=== PATIENT | female | born 2000 | race Caucasian/White ===

== ENCOUNTER 2020-01-22 14:34 | Emergency (ER) | payer MEDICAID, SELFPAY ==
[2020-01-22 14:45] VITALS: BP 130/81; PULSE 78; RESP 18; TEMP 37.2; O2SAT 100; BMI 29.5
--- NOTE | 2020-01-22 14:48 | ED_ITS ---
HPI - General: Chief complaint: Vaginal Bleeding Stated complaint: preg/bleeding 5 weeks Time Seen by Provider: 01/22/20 14:40 Source: patient Mode of arrival: ambulatory Limitations: no limitations History of Present Illness: HPI Narrative: 19-year-old female who believes she is 5 to 6 weeks states that she has had slight bleeding over the last few hours. She denies any blood clots. She states she had positive test 1 week ago but had a negative test at clinic yesterday. Denies any pain. MD Complaint: vaginal bleeding Onset (ago): hour(s) Severity: mild Relieving factors: none Exacerbating factors: none Vaginal bleeding: light Associated symptoms: Deny abdominal pain, dysuria, headache(s), nausea or vomiting Review of Systems Const: Denies: fever, chills, body aches or change in appetite Eyes: Denies: blurry vision or eye discomfort ENMT: Denies: throat pain or dental pain Card: Denies: chest pain Resp: Denies: shortness of breath GI: Denies: abdominal pain, nausea, vomiting or diarrhea : Reports: vaginal bleeding; Denies: painful urination Musc: Denies: neck pain or back pain Skin/Breast: Denies: rash Neuro: Denies: headache Psych: Denies: depression Hans/Lymph: Denies: easy bruising All/Imm: Denies: hives PFSH ED PFSH: Social History Smoking and tobacco status: former smoker Physical Exam Const: COMMON NORMALS: no apparent distress, oriented x3 and healthy appearing HENMT: COMMON NORMALS: normocephalic and head/scalp atraumatic HEAD & SCALP: normocephalic and atraumatic Eye: COMMON NORMALS: PERRL and EOMs intact bilaterally PUPIL: Yes PERRL Neck/C-Spine: COMMON NORMALS: full ROM and supple Chest: COMMONS NORMALS: inspection of chest normal and palpation of chest normal Resp: COMMON NORMALS: normal respiratory effort, no retractions, no use of accessory muscles and clear to auscultation bilaterally AUSCULTATION: clear to auscultation bilaterally Cardio: COMMON NORMALS: regular rate, regular rhythm and no murmurs RATE: regular rate RHYTHM: regular rhythm GI: COMMON NORMALS: normal to inspection, nondistended, normoactive bowel sounds, soft to palpation, non-tender and no masses PALPATION: Yes soft Extremity: COMMON NORMALS: normal to inspection and full ROM Neuro: COMMON NORMALS: oriented x3, moves all extremities and no focal motor deficits Psych: COMMON NORMALS: mental status grossly normal, thought process normal and cooperative THOUGHT PROCESS: normal thought process Skin: COMMON NORMALS: no rashes or lesions noted and no wounds GENERAL SKIN EXAM: no rashes or lesions noted Course Vital Signs: Vital signs: Vital Signs Temperature 99.0 F 01/22/20 14:45 Pulse Rate 78 01/22/20 14:45 Respiratory Rate 18 01/22/20 14:45 Blood Pressure 130/81 01/22/20 14:45 Pulse Oximetry 100 01/22/20 14:45 MDM - OB/Uterine Contractions MDM Narrative: Medical decision making narrative: Patient presents here with vaginal bleeding and likely has a miscarriage as her blood level is only 3. Bedside ultrasound last fall no signs of ectopic and do not believe a formal ultrasound is needed as her quantitative is so low. She is to have a repeat quantitative in 2 to 3 days to make sure level goes to 0. She is return if her bleeding is heavier. Lab Data: Labs: Lab Results 01/22/20 01/22/20 01/22/20 Range/Units 14:45 14:45 14:45 WBC 6.7 (4.5-13.0) 10^3/ uL RBC 4.79 (4.1-5.3) 10^6/u L Hgb 13.1 (11.5-15.3) g/dL Hct 39.8 (37.0-47.0) % MCV 83.1 (81-99) fL MCH 27.3 L (28.0-34.0) pg MCHC 32.9 (30.0-36.0) g/dL RDW 12.9 (12.1-15.1) % Plt Count 253 (130-400) 10^3/c mm MPV 9.4 (7.4-10.4) fL Neut % (Auto) 53.1 % Lymph % (Auto) 35.2 % [place]kinson % (Auto) 9.2 % Eos % (Auto) 1.8 % Baso % (Auto) 0.4 % Neut # (Auto) 3.6 (1.8-8.0) 10^3/u L Lymph # (Auto) 2.4 (1.5-6.5) 10^3/u L [place] # (Auto) 0.6 (0.2-0.9) 10^3/u L Eos # (Auto) 0.1 (0.0-0.8) 10^3/u L Baso # (Auto) 0.0 (0.0-0.1) 10^3/u L Nucleated RBC % (a uto) 0 % Nucleated RBCs # 0.0 /100WBC Ser , Nhan i-Qnt 3.66 mIU/mL Blood Type O Positive Rho(D) Type Positive Discharge Plan Discharge Patient Disposition: Home, Self-Care Clinical Impression: Miscarriage Condition: Stable Discharge Orders: Discharge Order (Routine); Ordered 01/22/20 Ordered By: Jacques Dhillon Referrals: Regi Palmer MD [Primary Care Provider] - 1-3 days Discharge Diet: Advance as tolerated Discharge Activity: Resume usual activity Patient Instructions: Spontaneous Miscarriage (ED) Coding Level of Care Code ED Legal Contracts Specialist for Nakita Fwd Exam Comprehensive
[2020-01-22 14:57] LABS: Basophils % 0.4 %; Eosinophils # 0.1 10^3/uL (0.0-0.8); Eosinophils % 1.8 %; Hematocrit 39.8 % (37.0-47.0); Hemoglobin 13.1 g/dL (11.5-15.3); Lymphocytes # 2.4 10^3/uL (1.5-6.5); Lymphocytes % 35.2 %; Mean Corpuscular HGB Conc 32.9 g/dL (30.0-36.0); Mean Corpuscular Hemoglobin 27.3 pg (28.0-34.0); Mean Corpuscular Volume 83.1 fL (81-99); Mean Platelet Volume 9.4 fL (7.4-10.4); Monocytes # 0.6 10^3/uL (0.2-0.9); Monocytes % 9.2 %; Neutrophils # 3.6 10^3/uL (1.8-8.0); Neutrophils % 53.1 %; Nucleated Red Blood Cells % 0 %; Platelet Count 253 10^3/cmm (130-400); Red Blood Count 4.79 10^6/uL (4.1-5.3); Red Cell Distribution Width 12.9 % (12.1-15.1); White Blood Count 6.7 10^3/uL (4.5-13.0)
[2020-01-22 15:19] LABS: HCG Quantitative 3.66 mIU/mL
[2020-01-22 15:45] VITALS: BP 135/81; PULSE 83; RESP 18; O2SAT 98
== END 2020-01-22 15:47 | disposition home or self-care (01) ==
PROVIDERS: Emergency Provider Emergency Medicine; Family Provider Family Medicine; PCP Family Medicine
DX: O03.9 Complete or unspecified spontaneous abortion without complication (principal); Z87.891 Personal history of nicotine dependence
CPT/HCPCS: 12345; 36415; 84702; 85025; 86900; 99281; 99282

== ENCOUNTER → 2020-02-18 13:31 | Outpatient (BNVA) | payer MEDICAID, SELFPAY | PROVIDERS: Family Provider Family Medicine; PCP Family Medicine; Visit Provider Nurse Practitioner | DX: N92.6 Irregular menstruation, unspecified (principal); Z32.01 Encounter for pregnancy test, result positive | CPT/HCPCS: 81025 ==

== ENCOUNTER → 2020-04-04 13:44 | Outpatient (BNVA) | payer MEDICAID, SELFPAY | PROVIDERS: Family Provider Family Medicine; PCP Family Medicine; Visit Provider Psychiatry & Neurology Psychiatry | DX: F41.1 Generalized anxiety disorder (principal); F33.1 Major depressive disorder, recurrent, moderate | CPT/HCPCS: 99204 ==

== ENCOUNTER → 2020-05-12 08:28 | Outpatient (BNVA) | payer MEDICAID, SELFPAY | PROVIDERS: Family Provider Family Medicine; PCP Family Medicine; Visit Provider Psychiatry & Neurology Psychiatry | DX: F33.1 Major depressive disorder, recurrent, moderate (principal); F41.1 Generalized anxiety disorder | CPT/HCPCS: 99213 ==

== ENCOUNTER 2020-06-12 14:31 | Outpatient (CLI) | payer MEDICAID, SELFPAY ==
[2020-06-12 14:34] VITALS: BMI 30.9
[2020-06-12 14:42] VITALS: BP 107/63; PULSE 80
[2020-06-12 14:57] VITALS: BP 100/65; PULSE 74; RESP 16; TEMP 36.9
[2020-06-12 15:00] VITALS: BP 100/65; PULSE 74; RESP 16; TEMP 36.9
== END 2020-06-12 15:00 | disposition home or self-care (01) ==
PROVIDERS: PCP Family Medicine; Visit Provider Family Medicine
DX: O26.899 Other specified pregnancy related conditions, unspecified trimester (principal); Z3A.00 Weeks of gestation of pregnancy not specified; R10.9 Unspecified abdominal pain
CPT/HCPCS: 99211

== ENCOUNTER 2020-06-12 15:04 | Emergency (ER) | payer MEDICAID, SELFPAY ==
[2020-06-12 13:52] LABS: Basophils % 0.3 %; Eosinophils # 0.1 10^3/uL (0.0-0.8); Eosinophils % 1.2 %; Hematocrit 37.2 % (37.0-47.0); Hemoglobin 12.2 g/dL (11.5-15.3); Lymphocytes # 1.5 10^3/uL (1.5-6.5); Mean Corpuscular HGB Conc 32.8 g/dL (30.0-36.0); Mean Corpuscular Volume 85.3 fL (81-99); Mean Platelet Volume 10.2 fL (7.4-10.4); Monocytes # 0.7 10^3/uL (0.2-0.9); Monocytes % 7.6 %; Neutrophils # 6.52 10^3/uL (1.8-8.0); Neutrophils % 73.2 %; Nucleated Red Blood Cells % 0 %; Platelet Count 244 10^3/cmm (130-400); Red Blood Count 4.36 10^6/uL (4.1-5.3); Red Cell Distribution Width 13.2 % (12.1-15.1); White Blood Count 8.9 10^3/uL (4.5-13.0)
[2020-06-12 14:17] LABS: Alanine Aminotransferase 6 U/L (0-33); Albumin Level 3.6 g/dL (3.5-5.2); Alkaline Phosphatase 57 IU/L (35-105); Anion Gap 10.9 (5-19); Aspartate Amino Transferase 8 U/L (0-32); Blood Urea Nitrogen 7 mg/dL (6-20); Calcium 9.2 mg/dL (8.5-10.5); Carbon Dioxide 24 mmol/L (22-29); Chloride 104 mmol/L (98-107); Globulin 2.8 g/dL (1.3-4.6); Glomerular Filtration Rate 157.3 mL/min (90-130); Glucose 82 mg/dL (65-115); Lipase 32 U/L (13-60); Magnesium 1.8 mg/dL (1.7-2.3); Osmolality Calculated 277 mOsm/kg (285-295); Potassium 3.9 mmol/L (3.5-5.1); Sodium 135 mmol/L (136-145); Total Bilirubin 0.2 mg/dL (0.15-1.2); Total Protein 6.4 g/dL (6.6-8.7)
[2020-06-12 15:33] VITALS: BP 117/57; PULSE 83; RESP 18; TEMP 37.1; O2SAT 100; BMI 30.9
[2020-06-12 15:42] VITALS: BP 117/57; PULSE 73; RESP 18; O2SAT 99
--- NOTE | 2020-06-12 15:52 | US_ITS ---
WS: [id number] RIGHT UPPER QUADRANT ULTRASOUND HISTORY: Abdominal Pain COMPARISON: None available. Liver: 16.3 cm in length. Normal size liver. No bile duct dilatation or mass. Gallbladder: Normally distended gallbladder with no stones or wall thickening. CBD: 0.3 cm Pancreas: Not visualized. Right kidney: 10.1 cm in length. Normal size and echogenicity. No hydronephrosis or mass. Aorta and IVC: Unremarkable abdominal aorta and IVC. RIGHT lower quadrant is imaged. The appendix is not identified. No inflammatory process. US/US abdomen limited [id number] IMPRESSION: 1. Appendix is not identified by ultrasound. 2. No ascites. 3. Negative gallbladder.
--- NOTE | 2020-06-12 15:52 | W.ED.ABDPA2 ---
HPI - Abdominal Pain General: Chief Complaint: Abdominal Pain Stated Complaint: RIGHT SIDE PAIN Time Seen by Provider: 06/12/20 15:46 Source: patient Mode of arrival: ambulatory Limitations: no limitations History of Present Illness: HPI narrative: Patient is a 19-year-old female who is 20 weeks comes in complaining of right upper quadrant abdominal pain. States the pain began last night and was present after eating. Pain is been constant since that time. Is made worse by eating which induces nausea. Denies any lower abdominal pain. She denies any vaginal discharge or bleeding. Patient has any urinary symptoms. Patient denies any fevers or chills. Said no diarrhea or constipation she denies any flank pain. Patient denies have anything similar to this in the past. Patient was already seen on the labor delivery floor and ruled out for active labor. Associated Symptoms: Reports nausea; Denies chills, coffee ground emesis, constipation, GI cramping, diarrhea, dysuria, fever(s), heartburn, hematochezia, hematuria, hematemesis, melena, syncope and vomiting Review of Systems Const: Denies: fever(s), chills, body aches, fatigue, malaise or diaphoresis Eyes: Denies: change in vision, blurry vision, photophobia, eye discomfort, eye discharge, eye redness or yellow eyes ENMT: Denies: throat pain, odynophagia, hoarseness, swelling of lips/tongue, ear or mastoid pain, ear discharge, change in hearing or nasal discharge Card: Denies: chest pain, palpitations, irregular heart rhythm, edema, lightheadedness, syncope, pre-syncope, dyspnea on exertion or orthopnea Resp: Denies: dyspnea, productive cough, non-productive cough, wheezing, hemoptysis or chest congestion GI: Reports: abdominal pain and nausea; Denies: vomiting, hematemesis, coffee ground emesis, heartburn, diarrhea, constipation, GI cramping, hematochezia or melena : Denies: flank pain, dysuria, urinary frequency, urinary urgency or hematuria Musc: Denies: neck pain, back pain, extremity pain, extremity swelling, joint pain, joint swelling, joint redness, joint warmth or joint stiffness Skin/Breast: Denies: rash, pruritus, erythema, skin pain or skin tenderness Neuro: Denies: headache(s), numbness in extremities, weakness in extremities, sensory changes, lack of coordination, difficulty walking, dizziness, vertigo, confusion, Slurred speech present or seizure-like activity Hans/Lymph: Denies: easy bruising, easy bleeding, petechiae, purpura or enlarged lymph nodes All/Imm: Denies: urticaria, throat swelling, tongue swelling, facial swelling or acute wheezing PFSH ED PFSH: Medical History (Updated 06/12/20 @ 19:20 by Shonda Roy) Generalized anxiety disorder Major depressive disorder, recurrent, moderate Surgical History (Updated 06/12/20 @ 16:31 by Shonda Roy) H/O shoulder surgery Social History (Updated 04/04/20 @ 14:05 by Hunter Austin LPN) Smoking and tobacco status: current every day smoker cigarettes Packs smoked per day: 0.25 Years cigarettes smoked: 2 Quit status (tobacco): has tried quititng Number of times tried to quit tobacco: 1 Second hand smoke exposure: No Current gender identity: Female Female Reproductive History: : 3 Physical Exam Const: COMMON NORMALS: no acute distress, patient oriented x3, no limitations and alert GENERAL APPEARANCE: cooperative HENMT: COMMON NORMALS: normocephalic, atraumatic, external ears normal, EAC's normal and Normal external nose present HEAD & SCALP: normal to inspection, normocephalic and atraumatic FACE & SINUS: normal facial exam and face symmetric NOSE: Normal external nose present and Normal nares present EXTERNAL EAR: Yes external ears normal EXTERNAL AUDITORY CANAL: EAC's normal MOUTH: Normal oral and palatal mucosa present, lip normal and tongue normal Eye: COMMON NORMALS: Equal, round and reactive pupils present and conjunctivae normal GENERAL EYE: appearance normal, both eyes and all related structures ALIGNMENT: Yes alignment normal PERIORBITAL: periorbital findings normal EYELID: eyelids normal CONJUNCTIVA: Yes conjunctivae normal SCLERA: sclerae normal PUPIL: Yes Equal, round and reactive pupils present Neck/C-Spine: COMMON NORMALS: full ROM, no lymphadenopathy, supple, no meningeal signs and no JVD GENERAL: Yes normal visual inspection and Yes trachea midline Chest: COMMONS NORMALS: normal inspection of the chest and normal palpation of entire chest wall Resp: COMMON NORMALS: normal respiratory effort, No retractions, No use of accessory muscles and clear to auscultation bilaterally EFFORT & INSPECTION: Yes able to speak in complete sentences and Yes symmetric chest movement AUSCULTATION: clear to auscultation bilaterally, no crackles, no rales, no rhonchi and no wheezes Cardio: COMMON NORMALS: no JVD, regular rate, regular rhythm, S1 normal heart sound present and S2 normal heart sound present RATE: regular rate RHYTHM: regular rhythm HEART SOUNDS: S1 normal heart sound present, S2 normal heart sound present, no click, no gallops, no murmurs and no rubs GI: COMMON NORMALS: Soft to palpation and No hepatosplenomegaly present PALPATION: Yes Soft to palpation, Yes Tenderness to palpation present (GI) (Mild tenderness in right upper quadrant.), No Guarding due to palpation present (GI), No Rigid due to palpation, Yes No hepatosplenomegaly present, No Hernia present, No Palpable mass present, No Pulsatile mass present and Yes Other GI palpation findings present (Gravid uterus palpated up to the level of the umbilicus. Uterus nontender to external palpation.) : COMMON NORMALS: Yes no CVA tenderness BLADDER/KIDNEY EXAM: Yes no CVA tenderness EXTERNAL FEMALE EXAM: No Hernia present Back/Pelvis: COMMON NORMALS: no CVA tenderness, thoracic and lumbar spine normal to inspection, no thoracic nor lumbar tenderness and thoraco-lumbar ROM normal Extremity: COMMON NORMALS: normal to inspection, full ROM, capillary refill normal, no joint enlargement, no clubbing, cyanosis or edema and no calf tenderness Neuro: COMMON NORMALS: patient oriented x3, CN's II-XII intact bilaterally, moves all extremities, no focal motor deficits and no sensory deficits noted SENSORIUM/ORIENTATION: Yes alert MENINGEAL SIGNS: Yes no meningeal signs SPEECH: speech normal Psych: COMMON NORMALS: mental status grossly normal, Normal thought process present, cooperative, normal affect, speech normal and activity/motor behavior normal SPEECH: Yes normal speech THOUGHT PROCESS: Normal thought process present Skin: COMMON NORMALS: no rashes or lesions noted, turgor normal, no jaundice, no petechiae and no mottling GENERAL SKIN EXAM: no rashes or lesions noted and turgor normal Course Vital Signs: Vital signs: Vital Signs Temperature 98.7 F 06/12/20 15:33 Pulse Rate 72 06/12/20 17:03 Respiratory Rate 18 06/12/20 17:03 Blood Pressure 98/47 06/12/20 17:03 Pulse Oximetry 97 06/12/20 17:03 MDM - Abdominal Pain MDM Narrative: Medical decision making narrative: 2127 -MRI of the abdomen was reviewed with the radiologist. He states he thinks he sees what is a normal appendix but cannot be certain. At this time he sees nothing inflammatory within the abdomen. Patient's ultrasound is unremarkable. At this time she is feeling better and her pain is gone. I did inform her about her risk of developing appendicitis and she is aware. She agrees to follow-up with Dr. Delgadillo tomorrow for recheck. If for any reason she cannot be seen by him she agrees to return here for recheck. She also understands to return sooner for increased pain, fever, vomiting, or for any worsening or change in her symptoms. At this time she has no pain and she is ready to be discharged. She is hungry. She is declining pelvic exam or any kind of gynecologic work-up but she states everything was normal and OB. She is to follow-up as directed and return as instructed. Lab Data: Attestation: I reviewed the patient's lab results. Labs: Lab Results 06/12/20 06/12/20 06/12/20 Range/Units 13:33 13:33 15:40 WBC 8.9 (4.5-13.0) 10^3/ uL RBC 4.36 (4.1-5.3) 10^6/u L Hgb 12.2 (11.5-15.3) g/dL Hct 37.2 (37.0-47.0) % MCV 85.3 (81-99) fL MCH 28.0 (28.0-34.0) pg MCHC 32.8 (30.0-36.0) g/dL RDW 13.2 (12.1-15.1) % Plt Count 244 (130-400) 10^3/c mm MPV 10.2 (7.4-10.4) fL Neut % (Auto) 73.2 % Lymph % (Auto) 17.0 % Luce % (Auto) 7.6 % Eos % (Auto) 1.2 % Baso % (Auto) 0.3 % Neut # (Auto) 6.52 (1.8-8.0) 10^3/u L Lymph # (Auto) 1.5 (1.5-6.5) 10^3/u L Luce # (Auto) 0.7 (0.2-0.9) 10^3/u L Eos # (Auto) 0.1 (0.0-0.8) 10^3/u L Baso # (Auto) 0.0 (0.0-0.1) 10^3/u L Nucleated RBC % (a uto) 0 % Nucleated RBCs # 0.0 /100WBC Sodium 135 L (136-145) mmol/L Potassium 3.9 (3.5-5.1) mmol/L Chloride 104 (98-107) mmol/L Carbon Dioxide 24 (22-29) mmol/L Anion Gap 10.9 (5-19) BUN 7 (6-20) mg/dL Creatinine 0.5 (0.5-0.9) mg/dL GFR Calculation 157.3 H (90-130) mL/min Glucose 82 (65-115) mg/dL Calculated Osmolal ity 277 L (285-295) mOsm/k g Calcium 9.2 (8.5-10.5) mg/dL Magnesium 1.8 (1.7-2.3) mg/dL Total Bilirubin 0.2 (0.15-1.2) mg/dL AST 8 (0-32) U/L ALT 6 (0-33) U/L Alkaline Phosphata se 57 (35-105) IU/L Total Protein 6.4 L (6.6-8.7) g/dL Albumin 3.6 (3.5-5.2) g/dL Globulin 2.8 (1.3-4.6) g/dL Lipase 32 (13-60) U/L Ser , Nhan i-Qnt 6699.00 mIU/mL Urine Color Yellow (Yellow) Urine Appearance Sl hazy (CLEAR) Urine pH 7 (5-7) Ur Specific Gravit y 1.015 (1.005-1.030) Urine Protein Neg (Negative) Urine Glucose (UA) Norm (Normal) Urine Ketones Negative (Negative) Urine Blood Neg (Negative) Urine Nitrate Negative (Negative) Urine Bilirubin Neg (Negative) Urine Urobilinogen 1 H (Negative) mg/dL Ur Leukocyte Eryn ase Negative (Negative) Urine RBC None (0-2) /hpf Urine WBC None (0-5) /hpf Ur Squamous Epith Cells 0-4 H (0-5) /hpf Amorphous Sediment 3+ /hpf Urine Bacteria Trace (NONE) /hpf Imaging Data ^: US: My impression: Ultrasound abdomen, tech interpretation -gallbladder unremarkable. No acute findings. Please see formal report US OB: My impression: Tech interpretation -single live intrauterine with good movement. heart rate 138. MRI Abdomen: Radiologist's impression: [address] [address] Magnetic Resonance Report Signed Patient: Kesha Choe Unit #: [id number] : 2000 Age/Sex: 19 / F ADM Date: 06/12/20 Loc: ER Room/Bed: Attending Dr: Ordering Provider/Ordering MD: Shonda Roy DO Date of Service: 06/12/20 Procedure(s): MR abdomen wo con [id number] Accession Number(s): [id number] Report Number: [id number] PROCEDURE INFORMATION: Exam: MR Abdomen Without Contrast Exam date and time: 06/12/2020 6:28 PM Age: 19 years old Clinical indication: Abdominal pain; Other: RT side abd pain; Patient HX: PT is 20 weeks pregnate; Additional info: Evaluate for appendicitis TECHNIQUE: Imaging protocol: MR of the abdomen without contrast. COMPARISON: CT Abdomen/Pelvis Renal [id number] 11/27/2017 6:36 PM FINDINGS: Liver: No mass. Gallbladder and bile ducts: Unremarkable. No stones. No ductal dilation. Pancreas: Unremarkable. No ductal dilation. Spleen: Unremarkable. No splenomegaly. Adrenals: Unremarkable. No mass. Kidneys and ureters: Unremarkable. No solid mass. No hydronephrosis. Stomach and bowel: Visualized stomach and intestines are unremarkable. Appendix: An inflamed appendix is not clearly visualized within the field of view provided. Intraperitoneal space: No free fluid. Arteries: No abdominal aortic aneurysm. Reproductive: Gravid uterus. Bones/joints: Unremarkable. Soft tissues: Unremarkable. MR/MR abdomen wo con [id number] IMPRESSION: An inflamed appendix is not clearly visualized within the field of view provided. Dictated By: Manuel Rogers Signed By: Manuel Rogers Signed Date/Time: 06/12/201849 DD/ 48 Discharge Plan Discharge Patient Disposition: Home Clinical Impression: Abdominal pain Qualifiers: Abdominal location: right upper quadrant Qualified Code(s): R10.11 - Right upper quadrant pain Condition: Stable Prescriptions: No Action prenat.vits,ayaka,men-qfqi-hjbrw Tablet 1 tab PO DAILY RF: 0 sertraline [Zoloft] 50 mg tablet 50 mg PO DAILY Qty: 30 RF: 2 Tylenol Extra Strength 500 mg Tablet 1,000 mg PO PRN RF: 0 Discharge Orders: Discharge Order (Routine); Ordered 06/12/20 Ordered By: Shonda Roy Referrals: Regi Palmer MD [Primary Care Provider] - Manny Delgadillo MD [Physician] - 1-3 days (Be certain to call to follow-up with Dr. Delgadillo tomorrow in the office. If for any reason you cannot be seen please return here to the ER for recheck.) Discharge Diet: Advance as tolerated Discharge Activity: Increase activity as tolerated Patient Instructions: Abdominal Pain (ED) Activity Restrictions/Additional Instructions: Please return to the ER immediately for any of the signs or symptoms listed on your discharge instruction sheets, worsening/changing of your symptoms, you are not getting better as quickly as expected, or for ANY other cause or concerns. Be certain to follow-up with Dr. Delgadillo [email or web address] for recheck as appendicitis has not definitively been ruled out as a cause for your pain. He will likely need reevaluated for possible gallbladder disease as well. Return to the ER sooner for fever, vomiting, return of your pain, or for any other cause for concern. Coding Level of Care Code ED Relief Salesperson for Nakita Zavala Exam Comprehensive
--- NOTE | 2020-06-12 15:53 | US_ITS ---
WS: [id number] Obstetrical ultrasound, limited. HISTORY: Abdominal pain. COMPARISON: 06/10/2020. Single intrauterine gestation identified with heart rate 160 bpm. Cervix is not visualized completely . Normal amniotic fluid. Placenta is posterior and grade 1. No previa. US/US OB limited [id number] IMPRESSION: Normal cardiac activity with no placental abruption.
[2020-06-12 15:56] LABS: Add Urine Microscopic? YES; Bilirubin Urine Neg (Negative); Blood Urine Neg (Negative); Glucose Urine UA Norm (Normal); Ketones Urine Negative (Negative); Leukocyte Esterase Urine Negative (Negative); Nitrate Urine Negative (Negative); Protein Urine Neg (Negative); Specific Gravity, Urine 1.015 (1.005-1.030); Urine Appearance SL Hazy (CLEAR); Urine Color Yellow (Yellow); Urobilinogen Urine 1 mg/dL (Negative); pH Urine 7 (5-7)
[2020-06-12 15:57] LABS: Add Urine Culture? No; Amorphous Sediment Urine 3+ /hpf; Bacteria Urine TRACE /hpf; Squamous Epithelial Cell Urine 0-4 /hpf (0-5)
[2020-06-12 16:44] VITALS: BP 124/70; PULSE 86; RESP 18; O2SAT 98
[2020-06-12 16:49] VITALS: RESP 18
[2020-06-12] MEDS: metoclopramide 5 mg/mL SDV 2 mL 10 MG IV (16:49)
[2020-06-12] MEDS: morphine 4 mg/mL SDV 1 mL IVP (16:49)
[2020-06-12] MEDS: sodium chloride 0.9% 1,000 ML 999 ML IV ×2 (16:50→17:59)
[2020-06-12 17:03] VITALS: BP 98/47; PULSE 72; RESP 18; O2SAT 97
--- NOTE | 2020-06-12 17:04 | MRR_ITS ---
PROCEDURE INFORMATION: Exam: MR Abdomen Without Contrast Exam date and time: 06/12/2020 6:28 PM Age: 19 years old Clinical indication: Abdominal pain; Other: RT side abd pain; Patient HX: PT is 20 weeks pregnate; Additional info: Evaluate for appendicitis TECHNIQUE: Imaging protocol: MR of the abdomen without contrast. COMPARISON: CT Abdomen/Pelvis Renal [id number] 11/27/2017 6:36 PM FINDINGS: Liver: No mass. Gallbladder and bile ducts: Unremarkable. No stones. No ductal dilation. Pancreas: Unremarkable. No ductal dilation. Spleen: Unremarkable. No splenomegaly. Adrenals: Unremarkable. No mass. Kidneys and ureters: Unremarkable. No solid mass. No hydronephrosis. Stomach and bowel: Visualized stomach and intestines are unremarkable. Appendix: An inflamed appendix is not clearly visualized within the field of view provided. Intraperitoneal space: No free fluid. Arteries: No abdominal aortic aneurysm. Reproductive: Gravid uterus. Bones/joints: Unremarkable. Soft tissues: Unremarkable. MR/MR abdomen wo con [id number] IMPRESSION: An inflamed appendix is not clearly visualized within the field of view provided.
[2020-06-12 19:39] VITALS: BP 103/63; PULSE 78; RESP 16; O2SAT 96
== END 2020-06-12 19:40 | disposition home or self-care (01) ==
PROVIDERS: Nurse Practitioner Family; Emergency Provider Emergency Medicine; PCP Family Medicine
DX: O26.892 Other specified pregnancy related conditions, second trimester (principal); R10.11 Right upper quadrant pain; F17.210 Nicotine dependence, cigarettes, uncomplicated; O99.332 Smoking (tobacco) complicating pregnancy, second trimester; Z3A.20 20 weeks gestation of pregnancy
CPT/HCPCS: 12345; 36415; 74181; 76705; 76815; 80053; 81001; 83690; 83735; 84702; 85025; 96361; 96374; 96375; 99283; 99284; J2270; J2765; J7030

== ENCOUNTER 2020-07-31 12:26 | Outpatient (CLI) | payer MEDICAID, SELFPAY ==
[2020-07-31] VITALS (9 sets, daily range): BP systolic 102–116; BP diastolic 57–71; PULSE 64–102; RESP 17; TEMP 36.8; BMI 32.1
[2020-07-31 13:25] LABS: Urine Appearance Cloudy (CLEAR); Urine Color Yellow (Yellow); pH Urine 6.5 (5-7)
[2020-07-31 13:26] LABS: Add Urine Culture? No; Amorphous Sediment Urine 4+ /hpf; Bacteria Urine TRACE /hpf; Bilirubin Urine Neg (Negative); Blood Urine Neg (Negative); Glucose Urine UA Norm (Normal); Ketones Urine Negative (Negative); Leukocyte Esterase Urine Negative (Negative); Mucus Urine 1+ /hpf; Nitrate Urine Negative (Negative); Protein Urine Neg (Negative); Squamous Epithelial Cell Urine 0-4 /hpf (0-5); Urobilinogen Urine Neg (Negative)
== END 2020-07-31 14:24 | disposition home or self-care (01) ==
LOC: OPOB 12:32 → OBGYN 12:32
PROVIDERS: Visit Provider Family Medicine
DX: O26.899 Other specified pregnancy related conditions, unspecified trimester (principal); Z3A.00 Weeks of gestation of pregnancy not specified
CPT/HCPCS: 81001; 99211

== ENCOUNTER 2020-08-15 20:25 | Outpatient (CLI) | payer MEDICAID, SELFPAY ==
[2020-08-15] VITALS (12 sets, daily range): BP systolic 95–138; BP diastolic 58–80; PULSE 61–87; RESP 16; TEMP 36.6–36.9; BMI 31.3
[2020-08-15] MEDS: acetaminophen 325 mg Tablet 650 MG PO (21:37)
[2020-08-15 22:06] LABS: Bilirubin Urine Neg (Negative); Blood Urine Neg (Negative); Glucose Urine UA Norm (Normal); Ketones Urine 1+ (Negative); Leukocyte Esterase Urine Negative (Negative); Nitrate Urine Negative (Negative); Protein Urine Neg (Negative); Urine Appearance Clear (CLEAR); Urine Color Yellow (Yellow); Urobilinogen Urine Norm (Negative); pH Urine 6 (5-7)
[2020-08-15 22:07] LABS: Add Urine Culture? No; Bacteria Urine 2+ /hpf; Mucus Urine 4+ /hpf; RBC Urine 0-4 /hpf (0-2); WBC Urine 0-4 /hpf (0-5)
[2020-08-15] MEDS: promethazine 25 mg/mL SDV 1 mL IM (22:48)
== END 2020-08-15 23:04 | disposition home or self-care (01) ==
LOC: OPOB 20:29 → OBGYN 20:30
PROVIDERS: Visit Provider Family Medicine
DX: O21.9 Vomiting of pregnancy, unspecified (principal); R25.2 Cramp and spasm; R52 Pain, unspecified
CPT/HCPCS: 81001; 87086; 96372; 99211; J2550

== ENCOUNTER 2020-09-15 17:00 | Outpatient (CLI) | payer MEDICAID, SELFPAY ==
[2020-09-15 17:15] VITALS: BP 111/73; PULSE 76; RESP 18; TEMP 36.8
[2020-09-15 17:59] VITALS: BMI 30.7
[2020-09-15] MEDS: terbutaline 1 mg/mL INJ 0.25 MG SUBCUT (18:50)
[2020-09-15 18:57] LABS: Urine Appearance Cloudy (CLEAR); Urine Color Yellow (Yellow); pH Urine 8 (5-7)
[2020-09-15 18:58] LABS: Bacteria Urine 1+ /hpf; Bilirubin Urine Neg (Negative); Blood Urine Neg (Negative); Glucose Urine UA Norm (Normal); Ketones Urine Negative (Negative); Leukocyte Esterase Urine Negative (Negative); Nitrate Urine Negative (Negative); Protein Urine Neg (Negative); RBC Urine 0-4 /hpf (0-2); Squamous Epithelial Cell Urine 0-4 /hpf (0-5); Sulfosalicylic Acid Urine Negative (Negative); Urobilinogen Urine Norm (Negative); WBC Urine 0-4 /hpf (0-5)
[2020-09-15] MEDS: lactated ringers 1,000 ML 999 ML IV (19:49)
[2020-09-15] MEDS: betamethasone susp 6 mg/mL 5 mL 12 MG IM (20:48)
[2020-09-15] MEDS: NIFEdipine ER (24 hr) 30 mg Tablet 60 MG PO (20:49)
[2020-09-15 21:02] VITALS: BP 117/70; PULSE 74
== END 2020-09-15 21:16 | disposition home or self-care (01) ==
LOC: OPOB 17:09 → OBGYN 17:10
PROVIDERS: Visit Provider Family Medicine
DX: O46.90 Antepartum hemorrhage, unspecified, unspecified trimester (principal); Z3A.00 Weeks of gestation of pregnancy not specified
CPT/HCPCS: 59025; 81001; 96372; 99211; J0702; J3105

== ENCOUNTER 2020-09-16 21:15 | Outpatient (CLI) | payer MEDICAID, SELFPAY ==
[2020-09-16 21:38] VITALS: BMI 30.4
[2020-09-16] MEDS: betamethasone susp 6 mg/mL 5 mL 12 MG IM (22:06)
== END 2020-09-16 22:30 | disposition home or self-care (01) ==
LOC: OPOB 21:15 → OBGYN 22:17
PROVIDERS: Visit Provider Family Medicine
DX: O26.899 Other specified pregnancy related conditions, unspecified trimester (principal); Z3A.00 Weeks of gestation of pregnancy not specified
CPT/HCPCS: 96372; 99211; J0702

== ENCOUNTER 2020-09-21 16:35 | Outpatient (CLI) | payer MEDICAID, SELFPAY ==
[2020-09-21 16:48] VITALS: BP 116/74; PULSE 104
[2020-09-21 17:08] VITALS: BP 0/0
[2020-09-21 17:09] VITALS: BP 110/71; PULSE 97
[2020-09-21 17:19] VITALS: BMI 30.7
[2020-09-21 17:27] VITALS: BP 110/71; PULSE 97; RESP 18
== END 2020-09-21 17:30 | disposition home or self-care (01) ==
LOC: OBGYN 17:40 → OPOB 09-22 09:16 → OBGYN 09-22 09:17
PROVIDERS: Visit Provider Family Medicine
DX: O26.899 Other specified pregnancy related conditions, unspecified trimester (principal); Z3A.00 Weeks of gestation of pregnancy not specified; R10.9 Unspecified abdominal pain
CPT/HCPCS: 99211; G0378; G0379

== ENCOUNTER 2020-09-26 17:51 | Outpatient (CLI) | payer MEDICAID, SELFPAY ==
[2020-09-26] VITALS (7 sets, daily range): BP systolic 107–125; BP diastolic 61–81; PULSE 83–101; RESP 16; TEMP 36.1; BMI 29.9
[2020-09-26 18:34] LABS: Nitrazine Paper, PH Positive
[2020-09-26 19:20] LABS: Actim Prom Negative
== END 2020-09-26 20:24 | disposition home or self-care (01) ==
LOC: OPOB 17:59 → OBGYN 19:51
PROVIDERS: Visit Provider Family Medicine
DX: O26.899 Other specified pregnancy related conditions, unspecified trimester (principal); Z3A.00 Weeks of gestation of pregnancy not specified; N89.8 Other specified noninflammatory disorders of vagina
CPT/HCPCS: 59025; 83986; 84112; 99211

== ENCOUNTER 2020-09-29 17:16 | Inpatient (IN) | payer MEDICAID, SELFPAY ==
[2020-09-29] VITALS (18 sets, daily range): BP systolic 100–128; BP diastolic 60–81; PULSE 64–90; RESP 16; TEMP 36.2; BMI 30.1
[2020-09-29 17:03] LABS: Nitrazine Paper, PH Positive
[2020-09-29 17:10] LABS: Actim Prom Positive
[2020-09-29 18:20] LABS: Basophils # 0.1 10^3/uL (0.0-0.1); Basophils % 0.4 %; Eosinophils # 0.1 10^3/uL (0.0-0.8); Eosinophils % 1.1 %; Hematocrit 36.6 % (37.0-47.0); Hemoglobin 11.9 g/dL (11.5-15.3); Lymphocytes # 2.1 10^3/uL (0.8-4.8); Lymphocytes % 17.3 %; Mean Corpuscular HGB Conc 32.5 g/dL (30.0-36.0); Mean Corpuscular Hemoglobin 25.8 pg (28.0-34.0); Mean Corpuscular Volume 79.4 fL (81-99); Mean Platelet Volume 11.7 fL (7.4-10.4); Neutrophils # 8.67 10^3/uL (1.8-7.7); Neutrophils % 72.6 %; Nucleated Red Blood Cells % 0 %; Platelet Count 250 10^3/cmm (130-400); Red Blood Count 4.61 10^6/uL (4.1-5.3); Red Cell Distribution Width 12.3 % (12.1-15.1); White Blood Count 11.9 10^3/uL (4.0-10.0)
[2020-09-29] MEDS: dextrose 5%-lactated ringers 1,000 ML 125 ML IV (18:20)
[2020-09-29] MEDS: ampicillin 2,000 MG in sodium chloride 0.9% (plus) 50 ML 100 MG IV (18:22)
[2020-09-29] MEDS: miSOPROStol 100 mcg tablet 25 MCG SUBLINGUAL (18:33)
[2020-09-29] MEDS: alum-mag-hydroxide-sime 30 mL UDC PO (19:33)
[2020-09-29] MEDS: oxytocin 30 UNIT/500 ML BAG IV (22:36)
[2020-09-29] MEDS: ampicillin 1,000 MG in sodium chloride 0.9% (plus) 50 ML 100 MG IV (23:34)
[2020-09-30] VITALS (108 sets, daily range): BP systolic 83–137; BP diastolic 48–79; PULSE 57–118; RESP 16; TEMP 35.9–37.2; O2SAT 99–100
[2020-09-30] MEDS: ampicillin 1,000 MG in sodium chloride 0.9% (plus) 50 ML 100 MG IV ×5 (03:50→20:20)
[2020-09-30] MEDS: dextrose 5%-lactated ringers 1,000 ML 125 ML IV ×2 (04:48→13:05)
[2020-09-30] MEDS: miSOPROStol 100 mcg tablet 25 MCG SUBLINGUAL (09:49)
[2020-09-30] MEDS: oxytocin 30 UNIT/500 ML BAG IV (14:00)
[2020-09-30 16:54] LABS: Coronavirus Test Green County Not Detected
--- NOTE | 2020-09-30 21:29 | P.ANESASSM_ITS ---
Pre-Anesthetic Assessment Pre-Anesthetic Assessment: Height/Weight: Height 1.75 m Weight 92.533 kg Temp Pulse Resp BP Pulse Ox 97.0 F L 75 16 103/64 100 09/30/20 20:38 09/30/20 21:09 09/30/20 15:05 09/30/20 21:09 09/30/20 16:00 Preop Diagnosis: labor Proposed Procedure: epidural Was Beta Perla taken within 24 hours: Yes Last Intake: 12:00 Social: Social History: No alcohol and No tobacco Exam: Pre-Anes Outpt Exam: alert, oriented x 3, clear to auscultation bilaterally and regular rate & rhythm Airway: Submandibular: WNL Cervical ROM: WNL MP: 1 Dentition: Full Pulmonary: Pulmonary: None reported CV/HEM: CV/HEM: None reported : : None reported Hepatic: Hepatic: None reported GI: GI: GERD Metabolic: Metabolic: None reported Musc/skel: Musc/skel: None reported Neuropsych: Neuropsych: None reported Anesthetic Plan: ASA status: 2 Anesthesia: Eval. for regional block and Regional (specify below) (epidural) Risk of > 500 ml blood loss (7ml/kg in children): No Meds/Allergies Current Medications: Current Medications Generic Name Dose Route Start Last Admin Trade Name Freq PRN Reason Stop Dose Admin Al Hydrox/Mg [place] x/Simethicone 30 ml 09/29/20 17:16 09/29/20 19:33 Ggqe-Icr-Olotcpy de-Lucas 30 Ml Udc PO 30 ml Q4H PRN Administration INDIGESTION Dextrose/Lactated Ringer's 1,000 mls @ 125 m ls/hr 09/29/20 17:30 09/30/20 13:05 Dextrose 5%-Lact ated Ringers IV 125 mls/hr .Q8H ALEJANDRA Administration Ampicillin Sodium 1,000 mg/ 50 mls @ 100 mls/ hr 09/29/20 21:18 09/30/20 20:20 Sodium Chloride IV 100 mls/hr Q4H ALEJANDRA Administration Protocol Oxytocin 30 unit in 500 ml s @ 1 mls/hr 09/29/20 22:33 09/30/20 18:32 Pitocin IV 24 milliunit/min .Q24H ALEJANDRA 24 mls/hr Titration Protocol 1 MILLIUNIT/MIN PFSH Anesthesia PFSH: Medical History (Updated 06/20/20 @ 00:04 by ) Generalized anxiety disorder Major depressive disorder, recurrent, moderate Surgical History (Updated 06/12/20 @ 16:31 by Shonda Roy) H/O shoulder surgery Social History (Updated 04/04/20 @ 14:05 by Hunter Austin LPN) Smoking and tobacco status: current every day smoker cigarettes Packs smoked per day: 0.25 Years cigarettes smoked: 2 Quit status (tobacco): has tried quititng Number of times tried to quit tobacco: 1 Second hand smoke exposure: No Current gender identity: Female Female Reproductive History: : 2 Data Anesthesia CBC & Chem 7: 09/29/20 17:38 Other Labs: Laboratory Results - last 48 hr 09/29/20 09/29/20 09/29/20 16:55 17:38 17:38 WBC 11.9 H RBC 4.61 Hgb 11.9 Hct 36.6 L MCV 79.4 L MCH 25.8 L MCHC 32.5 RDW 12.3 Plt Count 250 MPV 11.7 H Neut % (Auto) 72.6 Lymph % (Auto) 17.3 [place] % (Auto) 8.0 Eos % (Auto) 1.1 Baso % (Auto) 0.4 Neut # (Auto) 8.67 H Lymph # (Auto) 2.1 [place] # (Auto) 1.0 H Eos # (Auto) 0.1 Baso # (Auto) 0.1 Nucleated RBC % (auto) 0 Nucleated RBCs # 0.0 Insulin-like GF I Positive Nasal/Oral COVID-19 PCR Not detected Cardiac Studies: No Data to Display
--- NOTE | 2020-09-30 22:06 | ANES.PROC ---
Anesthesia Procedures Procedure/Date: 09/30/20 epidural Epidural: Time Out Performed: Yes Consents Signed: Procedure Consent and NPO Consent Consent: requested by attending/covering physician, from patient, risks and benefits reviewed and patient agrees to proceed Lumbar Level: L3-L4 Epidural position: sitting Epidural procedure: sterile prep of area (betadine), 1% lidocaine to numb the area (3), 18 g needle, neg for paresthesia, test dose given, 1.5% xylocaine 1:200k epi (5ml), 0.2% Ropivacaine bolus ml (5ml), placed PCEA, no systemic response, sterile dressing applied, L.U.D. no apparent complications and 0.2% Ropiavacaine @ mls/hr (13ml/hr)
[2020-10-01] VITALS (37 sets, daily range): BP systolic 82–125; BP diastolic 46–79; PULSE 64–102; RESP 16; TEMP 35.9–36.8; O2SAT 100
[2020-10-01] MEDS: ampicillin 1,000 MG in sodium chloride 0.9% (plus) 50 ML 100 MG IV (00:20)
[2020-10-01] MEDS: lactated ringers 1,000 ML 999 ML IV (01:00)
--- NOTE | 2020-10-01 05:21 | PM.DELIVERY ---
Delivery Note: Date of delivery: October 01, 2020 Pre-delivery diagnoses: A 1-year-old 2 para 1-0-0-1 at 36 weeks estimated gestational age presenting with spontaneous rupture of membranes Post-delivery diagnoses: Status post spontaneous vaginal delivery Procedure: Spontaneous vaginal delivery Op report anesthesia: Epidural Delivering Physician: Manny Delgadillo Estimated blood loss (mL): 200 Pre-Delivery Course: The patient is an otherwise healthy 20-year-old female who had an unremarkable who presented to the hospital with spontaneous rupture membranes. Her membranes ruptured shortly before arrival to hospital. Her labs demonstrated a blood type of O+ she passed her glucose screen hepatitis B negative she is GBS unknown. The remainder of her labs were within normal limits. After arrival to hospital she was placed on Cytotec 25 mcg sublingual. She was then transitioned to high-dose Pitocin. After being on high-dose Pitocin for over 6 hours there was no cervical change, and her contractions were not painful. Elected to place another dose of Cytotec, then restarted high-dose Pitocin 4 hours later. She gradually progressed to complete and had her delivery about 30 hours after presumed rupture of membranes. She was on GBS protocol throughout the labor process Delivery: DELIVERY: The patient progressed to complete without difficulty. She delivered a male with a weight of 5 pounds 8 ounces with Apgars of 9, 10. The baby was delivered from the GERBER position. The baby's mouth and nose were suctioned at the site of the perineum. The baby was then completely delivered and placed on the mother's abdomen. The cord was then clamped and cut. There was no nuchal cord. There was no meconium. The placenta and 3 vessel cord were delivered intact shortly thereafter. The perineum and vaginal vault were carefully examined. No lacerations were noted. Both the mother and the baby were in stable condition. Post-Delivery Status: Good Coding Level of Care Code Acute Shredder Tender Peat for Nakita Zavala
--- NOTE | 2020-10-01 09:54 | ANE.PACU2 ---
Inpatient post-anesthesia follow up: Airway intact: Yes Vital signs: Temperature 98.2 F Pulse Rate 83 Respiratory Rate 16 Blood Pressure 95/54 Pulse Oximetry 100 Oxygen Delivery Me thod Room Air Oxygen Flow Rate Fraction of Inspir ed Oxygen Hydration adequate: Yes Nausea and vomiting: No Pain level: 1 Mental status: Baseline Additional Comments: No residual numbess/weakness, no headache, up and walking, urinating, no s/s of infection at neuraxial site
[2020-10-01] MEDS: ibuprofen 800 mg tablet PO ×3 (10:19→20:01)
[2020-10-01] MEDS: prenatal vitamin Capsule 1 CAP PO (10:19)
[2020-10-01] MEDS: sertraline 50 mg Tablet PO (10:19)
[2020-10-01] MEDS: docusate sodium 100 mg Capsule PO ×2 (10:19→18:13)
--- NOTE | 2020-10-01 10:58 | PC.RESP ---
Smoking Cessation information sent to patient.
[2020-10-01 17:13] LABS: Hematocrit 32.4 % (37.0-47.0); Hemoglobin 10.5 g/dL (11.5-15.3); Mean Corpuscular HGB Conc 32.4 g/dL (30.0-36.0); Mean Corpuscular Hemoglobin 25.9 pg (28.0-34.0); Platelet Count 194 10^3/cmm (130-400); Red Blood Count 4.05 10^6/uL (4.1-5.3); Red Cell Distribution Width 12.1 % (12.1-15.1); White Blood Count 11.7 10^3/uL (4.0-10.0)
[2020-10-01] MEDS: lanolin oint 7 gm 1 APPLIC TOPICAL (20:04)
[2020-10-01] MEDS: acetaminophen 325 mg Tablet 650 MG PO (22:16)
[2020-10-02 05:47] VITALS: BP 96/67; PULSE 70; O2SAT 99
[2020-10-02 06:07] VITALS: BP 96/67; PULSE 78; RESP 16; TEMP 37; O2SAT 98
--- NOTE | 2020-10-02 07:43 | P.DS_ITS ---
Discharge Providers LIVESTOCK NUTRITION TERRITORY MANAGER Date of Admission: 09/29/20 17:16 Date of Discharge: 10/02/20 Attending Provider at Admission: Manny Delgadillo MD Attending Provider at Discharge: Manny Delgadillo MD Diagnoses at Discharge Discharge Diagnosis (1) 36 weeks gestation of : Status: Acute (2) Spontaneous vaginal delivery: Status: Acute Reason for Visit Reason for Visit: Possible ROM Hospital Course Hospital Course The patient is a 20-year-old 2 patient who presented to the hospital with spontaneous rupture of membranes. Her labor was augmented with both Cytotec and Pitocin. She progressed to complete and had an unremarkable delivery of a healthy-appearing 36-week male infant. Her GBS status was unknown, and she was on GBS protocol during her labor. Her course was also unremarkable. Her bleeding was within normal limits. She breast-fed well. Her pain was well controlled. Physical Exam Narrative: EXAM NARRATIVE: The patient is alert. She appears comfortable. Her heart has a regular rate and rhythm with no murmurs appreciated. Lungs are clear to auscultation bilaterally. Her fundus is firm and below the umbilicus. Urinary Catheter Management^: Ashley: Cath Placed During This Visit: yes Urinary Catheter Date of Insertion: 10/01/20 Urinary Catheter Time of Insertion: 23:00 Discharge Data Data Completed and Pending: Labs from last 24 hours 10/01/20 17:05 WBC 11.7 H RBC 4.05 L Hgb 10.5 L Hct 32.4 L MCV 80.0 L MCH 25.9 L MCHC 32.4 RDW 12.1 Plt Count 194 MPV 11.0 H Vitals: Last Vital Signs Temp 98.6 F 10/02/20 06:07 Pulse 78 10/02/20 06:07 Resp 16 10/02/20 06:07 BP 96/67 10/02/20 06:07 Pulse Ox 98 10/02/20 06:07 Discharge Plan Discharge Patient Disposition: Home Condition: Stable Prescriptions: New ibuprofen 800 mg Tablet 800 mg PO TID Qty: 30 RF: 0 Continued prenat.vits,ayaka,[id number] Tablet 1 tab PO DAILY RF: 0 sertraline [Zoloft] 50 mg tablet 50 mg PO DAILY Qty: 30 RF: 2 acetaminophen [Tylenol Extra Strength] 500 mg Tablet 1,000 mg PO PRN RF: 0 Discharge Orders: Discharge Order (Routine); Ordered 10/02/20 Ordered By: Manny Delgadillo Referrals: Manny Delgadillo MD [Physician] - 6 Weeks Discharge Diet: Usual diet Discharge Activity: Limit activity as instructed Discharge Attestations LIVESTOCK NUTRITION TERRITORY MANAGER Time Spent in Discharge Care*: less than 30 min Coding Level of Care Code Acute Parachute Taper for Chg Fwd Diagnoses 36 weeks gestation of Z3A.36 Spontaneous vaginal delivery O80
[2020-10-02] MEDS: ibuprofen 800 mg tablet PO (09:24)
[2020-10-02] MEDS: prenatal vitamin Capsule 1 CAP PO (09:25)
[2020-10-02] MEDS: docusate sodium 100 mg Capsule PO (09:25)
[2020-10-02 09:27] VITALS: BP 109/67; PULSE 84; TEMP 36.4
[2020-10-02 10:30] VITALS: BP 102/65; PULSE 73; RESP 16; TEMP 36.6
[2020-10-02 10:50] VITALS: BP 102/65; PULSE 73
== END 2020-10-02 11:25 | disposition home or self-care (01) | DRG 807 ==
LOC: OPOB 17:16 → OBGYN 17:16
PROVIDERS: Admitting Provider Family Medicine; Visit Provider Family Medicine
DX: O80 Encounter for full-term uncomplicated delivery (principal); Z37.0 Single live birth; Z3A.36 36 weeks gestation of pregnancy
CPT/HCPCS: 12345; 36415; 51702; 59025; 59409; 83986; 84112; 85025; 85027; 87635; 99211; J0290; J2795

== ENCOUNTER → 2020-11-20 17:02 | Outpatient (BNVA) | payer OTHER, MEDICAID, SELFPAY | PROVIDERS: Visit Provider Nurse Practitioner | DX: R35.0 Frequency of micturition (principal); N39.0 Urinary tract infection, site not specified | CPT/HCPCS: 81000 ==

== ENCOUNTER 2021-08-27 14:15 | Outpatient (CLI) | payer MEDICAID, SELFPAY ==
[2021-08-27] VITALS (13 sets, daily range): BP systolic 85–109; BP diastolic 53–63; PULSE 70–101; RESP 18; TEMP 35.7; BMI 27.8
[2021-08-27] MEDS: sodium chloride 0.9% 1,000 ML 999 ML IV (15:23)
[2021-08-27] MEDS: ondansetron 2 mg/ML SDV 2 mL 4 MG IVP (15:24)
[2021-08-27 17:20] LABS: Bilirubin Urine 1+ (Negative); Blood Urine Neg (Negative); Glucose Urine UA Norm (Normal); Ketones Urine 1+ (Negative); Nitrate Urine Negative (Negative); Protein Urine Neg (Negative); Urine Appearance Hazy (CLEAR); Urine Color Dark Yellow (Yellow); pH Urine 8 (5-7)
[2021-08-27 17:21] LABS: Leukocyte Esterase Urine Trace (Negative); Sulfosalicylic Acid Urine Negative (Negative); Urobilinogen Urine 1 mg/dL (Negative)
[2021-08-27 17:23] LABS: Add Urine Culture? No; Bacteria Urine 1+ /hpf; Mucus Urine 2+ /hpf
== END 2021-08-27 17:40 | disposition home or self-care (01) ==
LOC: OPOB 14:20 → OBGYN 14:26
PROVIDERS: Visit Provider Family Medicine
DX: O99.891 Other specified diseases and conditions complicating pregnancy (principal); R11.10 Vomiting, unspecified; Z3A.00 Weeks of gestation of pregnancy not specified
CPT/HCPCS: 81001; 96360; 99211; J2405; J7030

== ENCOUNTER → 2021-09-02 13:35 | Outpatient (BNVA) | payer OTHER, MEDICAID, SELFPAY | PROVIDERS: Visit Provider Counselor Professional | DX: F33.2 Major depressive disorder, recurrent severe without psychotic features (principal); F41.1 Generalized anxiety disorder | CPT/HCPCS: 90834 ==

== ENCOUNTER → 2021-10-15 11:52 | Outpatient (BNVA) | payer OTHER, MEDICAID, SELFPAY | PROVIDERS: Visit Provider Counselor Professional | DX: F33.2 Major depressive disorder, recurrent severe without psychotic features (principal); F41.1 Generalized anxiety disorder | CPT/HCPCS: 90834 ==

== ENCOUNTER 2021-10-16 17:00 | Outpatient (CLI) | payer OTHER, MEDICAID, SELFPAY ==
[2021-10-16 17:20] VITALS: BP 110/73; PULSE 87
[2021-10-16 17:24] VITALS: TEMP 36.2
[2021-10-16 17:29] VITALS: RESP 17
[2021-10-16 17:50] VITALS: BP 103/69; PULSE 78
[2021-10-16 17:50] LABS: Nitrazine Paper, PH Negative
[2021-10-16 17:55] LABS: Bilirubin Urine Neg (Negative); Blood Urine Neg (Negative); Glucose Urine UA Norm (Normal); Ketones Urine Negative (Negative); Leukocyte Esterase Urine Negative (Negative); Nitrate Urine Negative (Negative); Protein Urine Neg (Negative); Urine Appearance Cloudy (CLEAR); Urine Color Yellow (Yellow); Urobilinogen Urine Norm (Negative); pH Urine 8 (5-7)
[2021-10-16 18:04] LABS: Sulfosalicylic Acid Urine Negative (Negative)
[2021-10-16 18:20] VITALS: BP 113/77; PULSE 89
[2021-10-16 19:14] LABS: RBC Urine 0-4 /hpf (0-2); WBC Urine 0-4 /hpf (0-5)
[2021-10-16 19:15] LABS: Add Urine Culture? No; Amorphous Sediment Urine 4+ /hpf; Bacteria Urine 2+ /hpf; Mucus Urine 1+ /hpf; Squamous Epithelial Cell Urine 15-25 /hpf (0-5)
== END 2021-10-16 18:50 | disposition home or self-care (01) ==
LOC: OPOB 17:02 → OBGYN 17:05
PROVIDERS: Visit Provider Family Medicine
DX: O26.899 Other specified pregnancy related conditions, unspecified trimester (principal); Z3A.00 Weeks of gestation of pregnancy not specified; R10.9 Unspecified abdominal pain
CPT/HCPCS: 59025; 81001; 83986; 99211

== ENCOUNTER 2021-10-24 00:49 | Inpatient (IN) | payer MEDICAID, SELFPAY ==
[2021-10-24] VITALS (57 sets, daily range): BP systolic 88–113; BP diastolic 51–74; PULSE 59–98; RESP 18; TEMP 35.7–36.8; O2SAT 95–100
[2021-10-24 01:49] LABS: Basophils # 0.1 10^3/uL (0.0-0.1); Basophils % 0.4 %; Eosinophils # 0.2 10^3/uL (0.0-0.8); Eosinophils % 1.4 %; Hematocrit 33.6 % (37.0-47.0); Hemoglobin 10.9 g/dL (11.5-15.3); Lymphocytes # 2.6 10^3/uL (0.8-4.8); Lymphocytes % 19.5 %; Mean Corpuscular HGB Conc 32.4 g/dL (30.0-36.0); Mean Corpuscular Hemoglobin 26.3 pg (28.0-34.0); Mean Corpuscular Volume 81.2 fl (81-99); Mean Platelet Volume 11.2 fL (7.4-10.4); Monocytes # 1.3 10^3/uL (0.2-0.9); Monocytes % 9.6 %; Neutrophils # 9.11 10^3/uL (1.8-7.7); Neutrophils % 67.8 %; Nucleated Red Blood Cells % 0 %; Platelet Count 255 10^3/cmm (130-400); Red Blood Count 4.14 10^6/uL (4.1-5.3); Red Cell Distribution Width 12.7 % (12.1-15.1); White Blood Count 13.4 10^3/uL (4.0-10.0)
[2021-10-24] MEDS: dextrose 5%-lactated ringers 1,000 ML 125 ML IV ×2 (01:55→19:15)
[2021-10-24] MEDS: ampicillin 2,000 MG in sodium chloride 0.9% (plus) 50 ML 100 MG IV (01:56)
[2021-10-24] MEDS: miSOPROStol 100 mcg tablet 25 MCG SUBLINGUAL ×2 (02:00→06:48)
[2021-10-24 03:53] LABS: Adenovirus Not Detected (NOT DETECT); Chlamydia Pneumoniae Not Detected (NOT DETECT); Coronavirus 229E,HKU1,NL63,OC4 Not Detected (NOT DETECT); Human Metapneumovirus Not Detected (NOT DETECT); Human Rhinovirus/Enterovirus Not Detected (NOT DETECT); Influenza A Not Detected (NOT DETECT); Influenza A H1 Not Detected (NOT DETECT); Influenza A H1-2009 Not Detected (NOT DETECT); Influenza A H3 Not Detected (NOT DETECT); Influenza B Not Detected (NOT DETECT); Mycoplasma Pneumoniae Not Detected (NOT DETECT); Parainfluenza Virus Type 1 Not Detected (NOT DETECT); Parainfluenza Virus Type 2 Not Detected (NOT DETECT); Parainfluenza Virus Type 3 Not Detected (NOT DETECT); Parainfluenza Virus Type 4 Not Detected (NOT DETECT); Respiratory Syncytial Virus A Not Detected (NOT DETECT); Respiratory Syncytial Virus B Not Detected (NOT DETECT); SARS-COV-2 Not Detected (NOT DETECT)
[2021-10-24] MEDS: ampicillin 1,000 MG in sodium chloride 0.9% (plus) 50 ML 100 MG IV (06:19)
--- NOTE | 2021-10-24 09:16 | PM.OPHPUD ---
Labor & Delivery H&P Update Date of Procedure: October 24, 2021 Date H&P Performed: 10/21/21 Changes to previous documentation: Ruptured membranes noted. Admission Diagnosis: 21 year old at 37 weeks ega with ruptured membranes Preop diagnosis: labor Planned procedure: Spontaneous vaginal delivery Other information: The patient has had an unremarkable . She has had no significant problems during her . Please review office notes for labs.
[2021-10-24] MEDS: oxytocin 30 UNIT/500 ML BAG IV (12:15)
[2021-10-24] MEDS: lactated ringers 1,000 ML 999 ML IV (19:57)
--- NOTE | 2021-10-24 21:22 | ANES.PREANE2 ---
Pre-Anesthetic Assessment Height/Weight: Height 1.73 m Temp Pulse Resp BP Pulse Ox 96.6 F L 73 18 103/59 99 10/24/21 18:46 10/24/21 21:19 10/24/21 01:10 10/24/21 21:19 10/24/21 21:18 Preop Diagnosis: labor Labor Epidural Familial anesthetic complications: none Last intake: meal 0830 clear liquids -current Social Tobacco Airway Submandibular: within normal limits Cervical ROM: within normal limits Mallampati: Class II Dentition: full Pulmonary None reported CV/HEM None reported Hepatic None reported GI Gastroesophageal Reflux Disease Metabolic None reported Neuropsych Anxiety and Depression Anesthetic Plan ASA status: 2 Anesthesia: Eval. for regional block Medications/Allergies Home Medications Medication Instructions Recorded Confirmed Last Taken Type No Known Home Medications 10/16/21 10/24/21 Unknown History Allergies Allergy/AdvReac Type Severity Reaction Status Date / Time No Known Allergies Allergy Verified 10/24/21 03:24 Current Medications Generic Name Dose Route Start Last Admin Trade Name Freq PRN Reason Stop Dose Admin Dextrose/Lactated Ringer's 1,000 mls @ 125 mls/hr 10/24/21 01:15 10/24/21 20:59 Dextrose 5%-Lactated Ringers IV Not Given .Q8H ALEJANDRA Oxytocin 30 unit in 500 mls @ 1 mls/hr 10/24/21 12:00 10/24/21 13:15 Pitocin IV 9 milliunit/min .Q24H ALEJANDRA 9 mls/hr Titration Protocol 1 MILLIUNIT/MIN Lactated Ringer's 1,000 mls @ 999 mls/hr 10/24/21 19:54 10/24/21 20:58 Lactated Ringers IV Infused .Q1H1M PRN Infusion See label comments PFSH Anesthesia Medical History (Updated 06/02/21 @ 09:56 by Amada Perez) Generalized anxiety disorder Major depressive disorder, recurrent, moderate Psychiatric care Surgical History H/O shoulder surgery Social History Smoking and tobacco status: current every day smoker cigarettes Packs smoked per day: 0.25 Years cigarettes smoked: 2 Quit status (tobacco): has tried quititng Number of times tried to quit tobacco: 1 Second hand smoke exposure: No Current gender identity: Female Female Reproductive History : 3 Data Anesthesia : 10/24/21 00:55 Short CBC 10/24/21 Range/Units 00:55 WBC 13.4 H (4.0-10.0) 10^3/uL Hgb 10.9 L (11.5-15.3) g/dL Hct 33.6 L (37.0-47.0) % MCV 81.2 (81-99) fl Plt Count 255 (130-400) 10^3/cmm Neut % (Auto) 67.8 % Neut # (Auto) 9.11 H (1.8-7.7) 10^3/uL COVID Results 10/24/21 02:07 Coronavirus 229E (PCR) Not detected SARS-CoV-2 (PCR) Not detected Cardiac Studies: No Data to Display
--- NOTE | 2021-10-24 21:26 | ANES.PROC ---
Anesthesia Procedures Procedure/Date: 10/24/21 Epidural: Time Out Performed: Yes Consents Signed: Procedure Consent Consent: requested by attending/covering physician, from patient, risks and benefits reviewed and patient agrees to proceed Lumbar Level: L3-L4 Epidural position: sitting Epidural procedure: sterile prep of area, 1% lidocaine to numb the area, negative for paresthesia passed, neg for paresthesia, test dose given, no systemic response, sterile dressing applied, L.U.D. no apparent complications and 0.2% Ropiavacaine @ mls/hr (12 ml) Additional Comments: PHYLLIS at 6 cm catheter threaded to 13, no issues test dose negative VSS.
[2021-10-25] VITALS (24 sets, daily range): BP systolic 85–118; BP diastolic 49–82; PULSE 58–105; RESP 16–18; TEMP 35.9–36.8; O2SAT 98–99
--- NOTE | 2021-10-25 00:19 | P.PCNOB_ITS ---
Delivery Note: Date of delivery: October 25, 2021 Pre-delivery diagnoses: 21-year-old 3 para 2-0-0-2 at 37 weeks estimated gestational age Post- delivery diagnoses: Status post precipitous delivery Procedure: Spontaneous vaginal delivery Delivering Physician: Manny Delgadillo Findings: 200 Pre-Delivery Course: The patient presented to the hospital with spontaneous rupture membranes approximately 28 hours prior to delivery. She was placed on Cytotec. She was then placed on Pitocin. She progressed to complete without difficulty. Delivery: DELIVERY: The patient progressed to complete without difficulty. I contacted the hospital to find out how the patient was doing. At that time the nurse checked the patient and found out that she was complete with a +2 station. She delivered shortly after I called the hospital by the nurse while I was in route. She delivered a male with a weight of 6 pounds 3 ounces with Apgars of 8, 9. The cord was then clamped and cut. There was no nuchal cord. There was no meconium. The placenta and 3 vessel cord were delivered intact shortly thereafter. The perineum and vaginal vault were carefully examined. No lacerations were noted. Both the mother and the baby were in stable condition. Post-Delivery Status: Good Coding Level of Care Code Acute Solid Waste Truck Driver for Nakita Zavala
[2021-10-25] MEDS: lanolin oint 7 gm 1 APPLIC TOPICAL (01:38)
[2021-10-25] MEDS: benzocaine-menthol 78 gm Canister 1 SPRAY TOPICAL (01:38)
[2021-10-25] MEDS: HYDROcodone-acetaminophen 5-325 mg Tablet PO ×2 (01:41→08:12)
--- NOTE | 2021-10-25 05:00 | PC.NURSE ---
Patient got up on to void without this nurse and did not use the hat. This nurse instructed her to use the hat to void in next time to accurately measure output. patient verbalized understanding.
[2021-10-25] MEDS: prenatal vitamin Capsule 1 CAP PO (08:12)
[2021-10-25] MEDS: docusate sodium 100 mg Capsule PO (08:12)
[2021-10-25] MEDS: ibuprofen 800 mg tablet PO ×3 (08:12→21:09)
[2021-10-25 13:25] LABS: Hematocrit 30.7 % (37.0-47.0); Hemoglobin 10.2 g/dL (11.5-15.3); Mean Corpuscular HGB Conc 33.2 g/dL (30.0-36.0); Mean Corpuscular Volume 78.1 fl (81-99); Mean Platelet Volume 11.9 fL (7.4-10.4); Platelet Count 193 10^3/cmm (130-400); Red Blood Count 3.93 10^6/uL (4.1-5.3); Red Cell Distribution Width 12.4 % (12.1-15.1); White Blood Count 11.8 10^3/uL (4.0-10.0)
--- NOTE | 2021-10-25 16:41 | PM.OBGYDC ---
Discharge Providers VESSEL SLAG WORKER Date of Admission: 10/24/21 00:49 Date of Discharge: 10/25/21 Attending Provider at Admission: Manny Delgadillo MD Attending Provider at Discharge: Manny Delgadillo MD Reason for Visit Reason for Visit: POSS. ROM Hospital Course Hospital Course The patient presented to the hospital with spontaneous rupture of membranes. She was placed on Cytotec. She was then placed on Pitocin. She progressed to complete and had a vaginal delivery at about 28 hours post rupture membranes. Her course was unremarkable. She breast-fed well. Her pain was well controlled. Her bleeding was within normal limits. Information Peripartum Data: Infant Delivery Method: Vaginal Physical Exam Narrative: EXAM NARRATIVE: The patient is alert. She appears comfortable. Her heart has a regular rate and rhythm with no murmurs appreciated. Lungs are clear to auscultation bilaterally. Her fundus is firm and below the umbilicus. Urinary Catheter Management: Ashley: Cath Placed During This Visit: yes, but has since been removed by the nurse Reason for Continuing Indwelling Catheter: Other Urinary Catheter Date of Insertion: 10/24/21 Urinary Catheter Time of Insertion: 21:55 Date Urinary Catheter Removed: 10/25/21 Time Urinary Catheter Discontinued: 00:00 Discharge Data Studies Completed and Pending Laboratory Results WBC 11.8 10^3/uL (4.0-10.0) H 10/25/21 12:13 RBC 3.93 10^6/uL (4.1-5.3) L 10/25/21 12:13 Hgb 10.2 g/dL (11.5-15.3) L 10/25/21 12:13 Hct 30.7 % (37.0-47.0) L 10/25/21 12:13 MCV 78.1 fl (81-99) L 10/25/21 12:13 MCH 26.0 pg (28.0-34.0) L 10/25/21 12:13 MCHC 33.2 g/dL (30.0-36.0) 10/25/21 12:13 RDW 12.4 % (12.1-15.1) 10/25/21 12:13 Plt Count 193 10^3/cmm (130-400) 10/25/21 12:13 MPV 11.9 fL (7.4-10.4) H 10/25/21 12:13 Neut % (Auto) 67.8 % 10/24/21 00:55 Lymph % (Auto) 19.5 % 10/24/21 00:55 [place] % (Auto) 9.6 % 10/24/21 00:55 Eos % (Auto) 1.4 % 10/24/21 00:55 Baso % (Auto) 0.4 % 10/24/21 00:55 Neut # (Auto) 9.11 10^3/uL (1.8-7.7) H 10/24/21 00:55 Lymph # (Auto) 2.6 10^3/uL (0.8-4.8) 10/24/21 00:55 [place] # (Auto) 1.3 10^3/uL (0.2-0.9) H 10/24/21 00:55 Eos # (Auto) 0.2 10^3/uL (0.0-0.8) 10/24/21 00:55 Baso # (Auto) 0.1 10^3/uL (0.0-0.1) 10/24/21 00:55 Nucleated RBC % (auto) 0 % 10/24/21 00:55 Nucleated RBCs # 0.0 /100WBC 10/24/21 00:55 Coronavirus 229E (PCR) Not detected (NOT DETECT) 10/24/21 02:07 SARS-CoV-2 (PCR) Not detected (NOT DETECT) 10/24/21 02:07 Vitals Last Vital Signs Temp 97.9 F 10/25/21 12:00 Pulse 69 10/25/21 12:00 Resp 16 10/25/21 12:00 BP 118/82 10/25/21 12:00 Pulse Ox 98 10/25/21 06:15 Discharge Plan Discharge Patient Disposition: Home Condition: Stable Prescriptions: New ibuprofen 800 mg Tablet 800 mg PO TID Qty: 45 0RF -U 106.5-1 mg Capsule 1 cap PO DAILY Qty: 90 2RF Discharge Orders: Discharge Order (Routine); Ordered 10/25/21 Ordered By: Manny Delgadillo Referrals: Manny Delgadillo MD [Physician] - 6 Weeks Discharge Diet: Usual diet Discharge Activity: Limit activity as instructed Patient Instructions: Opioid Safety Discharge Attestations VESSEL SLAG WORKER Time Spent in Discharge Care*: less than 30 min Coding Level of Care Code Acute Division Manager for Nakita Zavala
--- NOTE | 2021-10-27 08:13 | ANE.PACU2 ---
Inpatient post-anesthesia follow up: Airway intact: Yes Vital signs: Temperature 98.3 F Pulse Rate 62 Respiratory Rate 17 Blood Pressure 100/73 Pulse Oximetry 99 Oxygen Delivery Me thod Room Air Oxygen Flow Rate Fraction of Inspir ed Oxygen Hydration adequate: Yes Pain level: 1 Mental status: Baseline
== END 2021-10-25 21:21 | disposition home or self-care (01) | DRG 807 ==
LOC: OBGYN 21:00 → OPOB 10-25 00:24
PROVIDERS: Admitting Provider Family Medicine; Visit Provider Family Medicine
DX: O99.334 Smoking (tobacco) complicating childbirth (principal); Z37.0 Single live birth; F17.210 Nicotine dependence, cigarettes, uncomplicated; F41.9 Anxiety disorder, unspecified; F32.A Depression, unspecified; O99.344 Other mental disorders complicating childbirth; O99.62 Diseases of the digestive system complicating childbirth; K21.9 Gastro-esophageal reflux disease without esophagitis; Z3A.37 37 weeks gestation of pregnancy
CPT/HCPCS: 12345; 36415; 51702; 59025; 59409; 83986; 85025; 85027; 87635; 99211; J0290

== ENCOUNTER → 2022-04-16 13:50 | Outpatient (BNVA) | payer MEDICAID, SELFPAY | PROVIDERS: Visit Provider Registered Nurse Neonatal Intensive Care | DX: N12 Tubulo-interstitial nephritis, not specified as acute or chronic (principal); N39.0 Urinary tract infection, site not specified | CPT/HCPCS: 81000 ==

== ENCOUNTER → 2022-04-29 14:21 | Outpatient (BNVA) | payer OTHER, MEDICAID, SELFPAY | PROVIDERS: PCP Family Medicine; Visit Provider Nurse Practitioner Women's Health | DX: D64.9 Anemia, unspecified (principal) | CPT/HCPCS: 82607; 82728; 82746; 83550; 85025 ==

== ENCOUNTER 2022-12-07 12:36 | Emergency (ER) | payer MEDICAID, SELFPAY ==
[2022-12-07 12:44] VITALS: BP 99/65; PULSE 115; RESP 18; TEMP 37.6; O2SAT 98
--- NOTE | 2022-12-07 13:42 | W.ED.FEVER ---
HPI - Fever General: Chief Complaint: Fever Stated Complaint: Fever, N/V, Sore throat Time Seen by Provider: 12/07/22 13:37 History of Present Illness: Patient is a 22-year-old female comes to the ED with nausea, vomiting. Symptoms started yesterday. She reports having a sore throat, nausea, vomiting, fatigue, chills, body aches, fever. Yesterday she took some Tylenol, but she has not taken any Tylenol or ibuprofen today. Nausea gets worse after she has something to eat or drink. Denies any chance of being . Patient's kids had similar symptoms preceding hers. Patient denies any abdominal pain, cough, ear pain, diarrhea, dysuria or hematuria. Associated symptoms: Reports chills, nasal congestion, nausea and vomiting; Deny abdominal pain, flank pain, chest pain, diarrhea, dysuria or headache(s) Review of Systems Const: Reports: fever(s), chills, body aches and fatigue Eyes: Denies: change in vision or eye discomfort ENMT: Reports: throat pain, nasal discharge and nasal congestion; Denies: odynophagia Card: Denies: chest pain, palpitations, edema, swelling of feet/ankles, dyspnea on exertion or orthopnea Resp: Denies: dyspnea, productive cough or non-productive cough GI: Reports: nausea and vomiting; Denies: abdominal pain, diarrhea, constipation or hematochezia : Denies: flank pain, dysuria or hematuria Musc: Denies: neck pain, back pain or extremity swelling Skin/Breast: Denies: rash or new lesions Neuro: Denies: headache(s), numbness in extremities or weakness in extremities PFS ED PFSH: Medical History Generalized anxiety disorder Major depressive disorder, recurrent, moderate No pertinent past medical history neghx: htn,dm,thyroid,dvt/pe PCP: Dr. Delgadillo Psychiatric care Surgical History H/O shoulder surgery Family History Denies family history of Colon cancer Ovarian cancer Diabetes Heart disease Hypercholesteremia Breast cancer Hypertension Uterine cancer Thyroid disease Stroke Physical Exam Const: COMMON NORMALS: patient oriented x3, healthy appearing and alert GENERAL APPEARANCE: cooperative and comfortable HENMT: COMMON NORMALS: normocephalic HEAD & SCALP: normocephalic MOUTH: Normal oral and palatal mucosa present THROAT: uvula midline, abnormal tonsil bilateral hypertrophy 2+ and posterior oropharynx abnormal erythema Neck/C-Spine: COMMON NORMALS: supple GENERAL: Yes normal visual inspection Resp: COMMON NORMALS: normal respiratory effort, No retractions, No use of accessory muscles and clear to auscultation bilaterally AUSCULTATION: clear to auscultation bilaterally Cardio: COMMON NORMALS: regular rate, regular rhythm, S1 normal heart sound present, S2 normal heart sound present, No gallops present (Cardio), No clicks present (Cardio), No murmurs present (Cardio) and Peripheral pulses 2+ throughout RATE: regular rate RHYTHM: regular rhythm HEART SOUNDS: S1 normal heart sound present and S2 normal heart sound present PERIPHERAL PULSES: Peripheral pulses 2+ throughout GI: COMMON NORMALS: Normal to inspection, nondistended, normoactive bowel sounds present, Soft to palpation, non-tender and no masses PALPATION: Yes Soft to palpation : COMMON NORMALS: Yes no CVA tenderness BLADDER/KIDNEY EXAM: Yes no CVA tenderness Back/Pelvis: COMMON NORMALS: no CVA tenderness Extremity: COMMON NORMALS: normal to inspection Neuro: COMMON NORMALS: patient oriented x3 SENSORIUM/ORIENTATION: Yes alert GAIT: Yes Normal gait present Skin: GENERAL SKIN EXAM: dry skin Course Vital Signs: Vital signs: Vital Signs Temperature 99.7 F H 12/07/22 12:44 Pulse Rate 112 H 12/07/22 15:21 Respiratory Rate 18 12/07/22 14:28 Blood Pressure 104/61 12/07/22 14:28 Pulse Oximetry 98 12/07/22 15:21 Oxygen Delivery Me thod 12/07/22 14:28 MDM - Fever Medical Decision Making Patient is a 22-year-old female comes to the ED with nausea, vomiting. Symptoms started yesterday. She reports having a sore throat, nausea, vomiting, fatigue, chills, body aches, fever. Yesterday she took some Tylenol, but she has not taken any Tylenol or ibuprofen today. Nausea gets worse after she has something to eat or drink. Denies any chance of being . Patient's kids had similar symptoms preceding hers. Patient denies any abdominal pain, cough, ear pain, diarrhea, dysuria or hematuria. Vitals are stable. Patient appears nontoxic in no acute distress or pain. Posterior oropharynx shows erythema, tonsils swollen bilaterally 2+ with erythema as well. Rest of exam is benign. White blood cell count of 19 with the rest of CBC and Cmp being are unremarkable. hCG negative. Influenza, COVID and strep are negative. Patient was given a liter of IV fluids, Decadron and Rocephin. Patient was stable for discharge home diagnosed with pharyngitis and viral syndrome. She was sent home with a prescription for Augmentin and Zofran. Told to follow-up with her PCP in the next week for reevaluation. Return to ED precautions given. Patient understood and agreed with plan. Lab Data I reviewed the patient's lab results. 12/07/22 14:00 12/07/22 14:00 Laboratory Results WBC 19.5 10^3/uL (4.0-10.0) H 12/07/22 14:00 RBC 4.64 10^6/uL (4.1-5.3) 12/07/22 14:00 Hgb 13.0 g/dL (11.5-15.3) 12/07/22 14:00 Hct 39.5 % (37.0-47.0) 12/07/22 14:00 MCV 85.1 fl (81-99) 12/07/22 14:00 MCH 28.0 pg (28.0-34.0) 12/07/22 14:00 MCHC 32.9 g/dL (30.0-36.0) 12/07/22 14:00 RDW 13.1 % (12.1-15.1) 12/07/22 14:00 Plt Count 193 10^3/cmm (130-400) 12/07/22 14:00 MPV 9.7 fL (7.4-10.4) 12/07/22 14:00 Neut % (Auto) 81.8 % 12/07/22 14:00 Lymph % (Auto) 7.0 % 12/07/22 14:00 [place] % (Auto) 10.0 % 12/07/22 14:00 Eos % (Auto) 0.2 % 12/07/22 14:00 Baso % (Auto) 0.2 % 12/07/22 14:00 Neut # (Auto) 15.91 10^3/uL (1.8-7.7) H 12/07/22 14:00 Lymph # (Auto) 1.4 10^3/uL (0.8-4.8) 12/07/22 14:00 [place] # (Auto) 2.0 10^3/uL (0.2-0.9) H 12/07/22 14:00 Eos # (Auto) 0.0 10^3/uL (0.0-0.8) 12/07/22 14:00 Baso # (Auto) 0.0 10^3/uL (0.0-0.1) 12/07/22 14:00 Nucleated RBC % (auto) 0 % 12/07/22 14:00 Nucleated RBCs # 0.0 /100WBC 12/07/22 14:00 Sodium 135 mmol/L (136-145) L 12/07/22 14:00 Potassium 3.4 mmol/L (3.5-5.1) L 12/07/22 14:00 Chloride 100 mmol/L (98-107) 12/07/22 14:00 Carbon Dioxide 22 mmol/L (22-29) 12/07/22 14:00 Anion Gap 16.4 (5-19) 12/07/22 14:00 BUN 8 mg/dL (6-20) 12/07/22 14:00 Creatinine 0.8 mg/dL (0.5-0.9) 12/07/22 14:00 GFR Calculation 88.9 mL/min (90-130) L 12/07/22 14:00 Glucose 107 mg/dL (65-115) 12/07/22 14:00 Calculated Osmolality 279 mOsm/kg (285-295) L 12/07/22 14:00 Calcium 8.9 mg/dL (8.5-10.5) 12/07/22 14:00 Total Bilirubin 0.8 mg/dL (0.15-1.2) 12/07/22 14:00 AST 14 U/L (0-32) 12/07/22 14:00 ALT 12 U/L (0-33) 12/07/22 14:00 Alkaline Phosphatase 68 U/L (35-105) 12/07/22 14:00 Total Protein 6.9 g/dL (6.6-8.7) 12/07/22 14:00 Albumin 3.9 g/dL (3.5-5.2) 12/07/22 14:00 Globulin 3.0 g/dL (1.3-4.6) 12/07/22 14:00 HCG, Qual Negative (Negative) 12/07/22 14:00 Influenza Type A Ag negative (Negative) 12/07/22 13:43 Influenza Type B Ag negative (Negative) 12/07/22 13:43 SARS-CoV-2 Ag (Rapid) negative (Negative) 12/07/22 13:43 Group A Strep Rapid Negative (Negative) 12/07/22 13:43 Discharge Plan Discharge Patient Disposition: Home Clinical Impression: Viral syndrome Pharyngitis Qualifiers: Pharyngitis/tonsillitis etiology: other specified organisms Qualified Code(s): J02.8 - Acute pharyngitis due to other specified organisms Condition: Stable Prescriptions: New Augmentin 500-125 mg tablet 1 tab PO BID 7 Days Qty: 14 0RF ondansetron 4 mg tablet,disintegrating 4 mg PO Q8H PRN (Reason: nausea and vomiting) Qty: 20 0RF No Action Kyleena 17.5 mcg/24 hrs (5 yrs) 19.5 mg intrauterine device See Rx Instructions .ROUTE .COMPLEX Rx Instructions: intrauterinely as directed Tylenol Ex Str Rapid Release 500 mg Tablet 1,000 mg PO Q6H PRN (Reason: Pain) ibuprofen 200 mg Tablet 600 mg PO Q6H PRN (Reason: Pain) Lamictal 100 mg Tablet 100 mg PO BEDTIME Discharge Orders: Discharge ED (Routine); Ordered 12/07/22 Ordered By: Steve Severino Referrals: Manny Delgadillo MD [Primary Care Provider] - Discharge Diet: Regular Discharge Activity: Increase activity as tolerated Patient Instructions: Pharyngitis (ED), Viral Syndrome (ED) Activity Restrictions/Additional Instructions: Follow-up with medical provider as directed in the next 3 to 5 days for reevaluation. Take medications as prescribed. Make sure you drink plenty of fluids and stay hydrated. Take [id number] Tylenol or Motrin for any fevers. Return to the ER or your medical provider if condition worsens. Please read and understand discharge instructions. Thank you for choosing [facility] for your healthcare needs today. Please realize this is an emergency room and that we are providing you with a medical screening exam and this may not be complete and all inclusive of all the testing and or work up that you may need to determine your ailment or severity of your illness. It is very important that you follow up as instructed or that you return to the Emergency Department should you have concerns or if your condition changes or worsens in any way. Coding Level of Care Code ED Surety Bond Agent for Nakita Zavala
[2022-12-07] MEDS: sodium chloride 0.9% 1,000 ML 999 ML IV (13:59)
[2022-12-07] MEDS: ondansetron 2 mg/ML SDV 2 mL 4 MG IVP (14:00)
[2022-12-07 14:03] LABS: Rapid Strep A Test Negative (Negative)
[2022-12-07 14:10] LABS: Red Blood Count 4.64 10^6/uL (4.1-5.3); White Blood Count 19.5 10^3/uL (4.0-10.0)
[2022-12-07 14:11] LABS: Basophils % 0.2 %; Eosinophils % 0.2 %; Hematocrit 39.5 % (37.0-47.0); Lymphocytes # 1.4 10^3/uL (0.8-4.8); Mean Corpuscular HGB Conc 32.9 g/dL (30.0-36.0); Mean Corpuscular Volume 85.1 fl (81-99); Mean Platelet Volume 9.7 fL (7.4-10.4); Neutrophils # 15.91 10^3/uL (1.8-7.7); Neutrophils % 81.8 %; Nucleated Red Blood Cells % 0 %; Platelet Count 193 10^3/cmm (130-400); Red Cell Distribution Width 13.1 % (12.1-15.1)
[2022-12-07 14:11] LABS: Influenza A by IFA negative (Negative); Influenza B by IFA negative (Negative); SARS Covid-2 Antigen negative (Negative)
[2022-12-07 14:28] VITALS: BP 104/61; PULSE 105; RESP 18; O2SAT 100
[2022-12-07 14:29] LABS: HCG, Serum Qual Negative (Negative)
[2022-12-07 14:34] LABS: Alanine Aminotransferase 12 U/L (0-33); Albumin Level 3.9 g/dL (3.5-5.2); Alkaline Phosphatase 68 U/L (35-105); Anion Gap 16.4 (5-19); Aspartate Amino Transferase 14 U/L (0-32); Blood Urea Nitrogen 8 mg/dL (6-20); Calcium 8.9 mg/dL (8.5-10.5); Carbon Dioxide 22 mmol/L (22-29); Chloride 100 mmol/L (98-107); Glomerular Filtration Rate 88.9 mL/min (90-130); Glucose 107 mg/dL (65-115); Osmolality Calculated 279 mOsm/kg (285-295); Potassium 3.4 mmol/L (3.5-5.1); Sodium 135 mmol/L (136-145); Total Bilirubin 0.8 mg/dL (0.15-1.2); Total Protein 6.9 g/dL (6.6-8.7)
[2022-12-07] MEDS: dexamethasone 10 mg/mL INJ IVP (14:43)
[2022-12-07] MEDS: cefTRIAXone 1,000 MG in sodium chloride 0.9% (plus) 50 ML 100 MG IV (14:43)
[2022-12-07 15:21] VITALS: PULSE 112; O2SAT 98
== END 2022-12-07 15:22 | disposition home or self-care (01) ==
PROVIDERS: Emergency Provider Physician Assistant; PCP Family Medicine
DX: J02.8 Acute pharyngitis due to other specified organisms (principal); B34.9 Viral infection, unspecified; Z20.822 Contact with and (suspected) exposure to COVID-19
CPT/HCPCS: 80053; 84703; 85025; 87081; 87426; 87804; 87880; 96365; 96375; 99284; J0696; J1100; J2405; J7030

== ENCOUNTER → 2023-02-11 17:34 | Outpatient (BNVA) | payer OTHER, SELFPAY | PROVIDERS: PCP Family Medicine; Visit Provider Nurse Practitioner | DX: R39.9 Unspecified symptoms and signs involving the genitourinary system (principal); Z20.2 Contact with and (suspected) exposure to infections with a predominantly sexual mode of transmission | CPT/HCPCS: 81000; 87491; 87591 ==

== ENCOUNTER → 2023-05-09 09:23 | Outpatient (BNVA) | payer MEDICAID, SELFPAY | PROVIDERS: PCP Family Medicine; Visit Provider Nurse Practitioner | DX: Z20.2 Contact with and (suspected) exposure to infections with a predominantly sexual mode of transmission (principal) | CPT/HCPCS: 87491; 87591; 87661 ==

== ENCOUNTER → 2023-11-01 16:46 | Outpatient (BNVA) | payer MEDICAID, SELFPAY | PROVIDERS: PCP Family Medicine; Visit Provider Registered Nurse Neonatal Intensive Care | DX: R05.8 Other specified cough (principal) | CPT/HCPCS: 87400; 87426 ==

== ENCOUNTER 2024-03-24 13:33 | Emergency (ER) | payer OTHER, MEDICAID, SELFPAY ==
[2024-03-24 13:35] VITALS: BP 114/80; PULSE 57; RESP 14; TEMP 36.9; O2SAT 100
[2024-03-24 14:20] LABS: Basophils % 0.6 %; Eosinophils # 0.1 10^3/uL (0.0-0.8); Eosinophils % 1.1 %; Hematocrit 40.2 % (36-47); Lymphocytes # 1.5 10^3/uL (0.8-4.8); Lymphocytes % 21.3 %; Mean Corpuscular HGB Conc 32.8 g/dL (30-55); Mean Corpuscular Hemoglobin 28.4 pg (27-33); Mean Corpuscular Volume 86.5 fl (85-98); Mean Platelet Volume 10.1 fL (7.4-10.4); Monocytes # 0.5 10^3/uL (0.2-0.9); Monocytes % 7.3 %; Neutrophils # 4.83 10^3/uL (1.8-7.7); Neutrophils % 69.3 %; Nucleated Red Blood Cells % 0 %; Platelet Count 244 10^3/cmm (157-399); Red Blood Count 4.65 10^6/uL (3.85-5.65); White Blood Count 6.98 10^3/uL (3.29-11.43)
[2024-03-24 14:37] LABS: Alanine Aminotransferase 9 U/L (0-33); Albumin Level 4.3 g/dL (3.5-5.2); Alkaline Phosphatase 58 U/L (35-105); Anion Gap 13.8 (5-19); Aspartate Amino Transferase 9 U/L (0-32); Blood Urea Nitrogen 9 mg/dL (6-20); Calcium 9.2 mg/dL (8.5-10.5); Carbon Dioxide 27 mmol/L (22-29); Chloride 102 mmol/L (98-107); Creatinine Clr Calc Pharmacy 113.0278; Globulin 2.9 g/dL (1.3-4.6); Glomerular Filtration Rate 88.1 mL/min (90-130); Glucose 87 mg/dL (65-115); HCG, Serum Qual Negative (Negative); Osmolality Calculated 286 mOsm/kg (285-295); Potassium 3.8 mmol/L (3.5-5.1); Sodium 139 mmol/L (136-145); Total Bilirubin 0.4 mg/dL (0.15-1.2); Total Protein 7.2 g/dL (6.6-8.7)
--- NOTE | 2024-03-24 15:01 | CTR_ITS ---
PROCEDURE INFORMATION: Exam: CT Abdomen And Pelvis With Contrast Exam date and time: 03/24/2024 4:01 PM Age: 23 years old Clinical indication: Abdominal pain; Epigastric; Additional info: Abd pain, wt. Loss TECHNIQUE: Imaging protocol: Computed tomography of the abdomen and pelvis with contrast. Radiation optimization: All CT scans at this facility use at least one of these dose optimization techniques: automated exposure control; mA and/or kV adjustment per patient size (includes targeted exams where dose is matched to clinical indication); or iterative reconstruction. Contrast material: OMNI 350; Contrast volume: 100 ml; Contrast route: INTRAVENOUS (IV); COMPARISON: MR abdomen wo con [id number] 06/12/2020 6:15 PM RADIATION DOSE METRICS: Total DLP (mGy-cm): 403.71 FINDINGS: Lungs: Visualized lung bases are clear. No infiltrate or effusion. Liver: Ill-defined hypodense appearance with linear or stranding appearance is seen within the posteroinferior right lobe of the liver, appearing asymmetric with the remainder of the liver. This appears interdispersed within normal enhancing liver parenchyma. There is lack of a discrete or defined mass or enhancing mass. Gallbladder and biliary ducts: Normal. No calcified stones. No ductal dilation. Pancreas: Normal. No ductal dilation. Spleen: Normal. No splenomegaly. Adrenal glands: Normal. No mass. Kidneys and ureters: Normal. No hydronephrosis. Stomach and bowel: Cannot exclude wall thickening in the upper stomach. No bowel obstruction. Gas and stool within the proximal half of the colon. Underdistention of the distal half of the colon with suggestion of smooth appearance. No pericolonic mesenteric stranding or focal inflammatory change. Appendix: No evidence of appendicitis. Intraperitoneal space: No free fluid or ascites or fluid collection. No free air. Vasculature: Major vascular structures appear patent. Nonaneurysmal abdominal aorta. Lymph nodes: Unremarkable. No enlarged lymph nodes. Urinary bladder: Suboptimal urinary bladder distension without focal abnormality. Reproductive: Unremarkable as visualized. Bones/joints: No acute osseous abnormality. Soft tissues: Unremarkable. CT/CT abdomen pelvis w con* [id number] IMPRESSION: 1. Ill-defined hypodense appearance with component of linear or stranding appearance within the posteroinferior right lobe of the liver that appears asymmetric with the remainder of the liver. Lack of a discrete or defined or enhancing mass. Possible focal hepatic fibrosis or ill-defined ischemic change with other ill-defined infiltrative process not excluded. Follow-up MRI of the liver/abdomen for correlation with prior MRI abdomen exam of 2019. 2. Cannot exclude wall thickening in the upper stomach. 3. Underdistention of the distal half of the colon in relation to the proximal half of the colon, limiting its evaluation. No pericolonic mesenteric stranding or focal inflammatory change otherwise.
--- NOTE | 2024-03-24 15:02 | W.ED.ABDPA2 ---
HPI - Abdominal Pain General: Chief Complaint: Abdominal Pain Stated Complaint: n/v, chest pain, abd pain Time Seen by Provider: 03/24/24 14:59 History of Present Illness: 23-year-old female comes in today with complaints of abdominal pain radiating up into the chest. Patient reports that she has had intermittent vomiting on and off for the last month. Patient does have a history of acid reflux. Patient reports a 20 pound weight loss. Patient had surgery on her right shoulder in the past. Last menstrual period was 1 month ago. Patient has been using [id number]-[id number] Tums and Pepto for distress. Patient at this time is on Amoxil and the NSAID for a dental infection. Patient does use daily tobacco and marijuana. Patient denies alcohol or methamphetamine use. Associated Symptoms: Reports nausea and vomiting Review of Systems General: Reports: 10 or more systems reviewed and unremarkable except in HPI and below GI: Reports: abdominal pain, nausea and vomiting [facility] ED PFSH: Medical History (Updated 03/24/24 @ 18:08 by SHRUTI Sepulveda) ADHD (attention deficit hyperactivity disorder), combined type No pertinent past medical history neghx: htn,dm,thyroid,dvt/pe PCP: Dr. Delgadillo Major depressive disorder, recurrent, moderate Generalized anxiety disorder Surgical History (System 07/21/23 @ 15:12 by Cass Arroyo) H/O shoulder surgery Family History Denies family history of Colon cancer Ovarian cancer Diabetes Heart disease Hypercholesteremia Breast cancer Hypertension Uterine cancer Thyroid disease Stroke Physical Exam Const: COMMON NORMALS: no acute distress HENMT: COMMON NORMALS: atraumatic HEAD & SCALP: atraumatic Neck/C-Spine: COMMON NORMALS: full ROM Resp: COMMON NORMALS: normal respiratory effort and clear to auscultation bilaterally AUSCULTATION: clear to auscultation bilaterally Cardio: COMMON NORMALS: regular rate and regular rhythm RATE: regular rate RHYTHM: regular rhythm GI: COMMON NORMALS: Soft to palpation PALPATION: Yes Soft to palpation and Yes Tenderness to palpation present (GI) (Epigastric) Back/Pelvis: COMMON NORMALS: thoracic and lumbar spine normal to inspection Extremity: COMMON NORMALS: normal to inspection Skin: COMMON NORMALS: turgor normal GENERAL SKIN EXAM: turgor normal Course Vital Signs: Vital signs: Vital Signs Temperature 98.5 F 03/24/24 13:35 Pulse Rate 57 L 03/24/24 13:35 Respiratory Rate 14 03/24/24 15:34 Blood Pressure 107/59 03/24/24 15:34 Pulse Oximetry 100 03/24/24 13:35 Oxygen Delivery Me thod Room Air 03/24/24 13:35 MDM - Abdominal Pain Medical Decision Making 23-year-old female comes in today for persistent epigastric pain with occasional nausea and vomiting. Patient reports symptoms on and off for the last month. Patient reports a weight loss of 20 pounds. Patient appears nontoxic. Differential diagnosis includes gallbladder disease, peptic ulcer disease, gastritis, GERD, esophagitis, pancreatitis, cannabinoid hyperemesis syndrome, hiatal hernia. CBC CMP and urinalysis was unremarkable. CT of the abdomen and pelvis noted some hypodense irregularities in the liver recommending MRI for further evaluation to compare to prior exams. Otherwise patient did have some wall thickening in the upper stomach. Reviewed CT with Dr. Hsu he agreed with plan for patient to have follow-up MRI through primary care. Labs were unremarkable suggesting no significant liver injury but patient would need further evaluation to rule out any other significance to this abnormality. Patient reported understanding and will follow-up. At this time patient be treated for gastritis with pantoprazole. Patient was given 1 dose in the emergency room and will follow-up with primary care in 1 to 2 weeks for recheck. Lab Data 03/24/24 14:07 03/24/24 14:07 Labs/Radiology: Radiology Impressions Abdomen/Pelvis CT 03/24/24 15:01 IMPRESSION: 1. Ill-defined hypodense appearance with component of linear or stranding appearance within the posteroinferior right lobe of the liver that appears asymmetric with the remainder of the liver. Lack of a discrete or defined or enhancing mass. Possible focal hepatic fibrosis or ill-defined ischemic change with other ill-defined infiltrative process not excluded. Follow-up MRI of the liver/abdomen for correlation with prior MRI abdomen exam of 2019. 2. Cannot exclude wall thickening in the upper stomach. 3. Underdistention of the distal half of the colon in relation to the proximal half of the colon, limiting its evaluation. No pericolonic mesenteric stranding or focal inflammatory change otherwise. Laboratory Results WBC 6.98 10^3/uL (3.29-11.43) 03/24/24 14:07 RBC 4.65 10^6/uL (3.85-5.65) 03/24/24 14:07 Hgb 13.20 g/dL (11.27-16.99) 03/24/24 14:07 Hct 40.2 % (36-47) 03/24/24 14:07 MCV 86.5 fl (85-98) 03/24/24 14:07 MCH 28.4 pg (27-33) 03/24/24 14:07 MCHC 32.8 g/dL (30-55) 03/24/24 14:07 RDW 13.0 % (12.1-15.1) 03/24/24 14:07 Plt Count 244 10^3/cmm (157-399) 03/24/24 14:07 MPV 10.1 fL (7.4-10.4) 03/24/24 14:07 Neut % (Auto) 69.3 % 03/24/24 14:07 Lymph % (Auto) 21.3 % 03/24/24 14:07 Pitkin % (Auto) 7.3 % 03/24/24 14:07 Eos % (Auto) 1.1 % 03/24/24 14:07 Baso % (Auto) 0.6 % 03/24/24 14:07 Neut # (Auto) 4.83 10^3/uL (1.8-7.7) 03/24/24 14:07 Lymph # (Auto) 1.5 10^3/uL (0.8-4.8) 03/24/24 14:07 Pitkin # (Auto) 0.5 10^3/uL (0.2-0.9) 03/24/24 14:07 Eos # (Auto) 0.1 10^3/uL (0.0-0.8) 03/24/24 14:07 Baso # (Auto) 0.0 10^3/uL (0.0-0.1) 03/24/24 14:07 Nucleated RBC % (auto) 0 % 03/24/24 14:07 Nucleated RBCs # 0.0 /100WBC 03/24/24 14:07 Sodium 139 mmol/L (136-145) 03/24/24 14:07 Potassium 3.8 mmol/L (3.5-5.1) 03/24/24 14:07 Chloride 102 mmol/L (98-107) 03/24/24 14:07 Carbon Dioxide 27 mmol/L (22-29) 03/24/24 14:07 Anion Gap 13.8 (5-19) 03/24/24 14:07 BUN 9 mg/dL (6-20) 03/24/24 14:07 Creatinine 0.8 mg/dL (0.5-0.9) 03/24/24 14:07 GFR Calculation 88.1 mL/min (90-130) L 03/24/24 14:07 Glucose 87 mg/dL (65-115) 03/24/24 14:07 Calculated Osmolality 286 mOsm/kg (285-295) 03/24/24 14:07 Calcium 9.2 mg/dL (8.5-10.5) 03/24/24 14:07 Total Bilirubin 0.4 mg/dL (0.15-1.2) 03/24/24 14:07 AST 9 U/L (0-32) 03/24/24 14:07 ALT 9 U/L (0-33) 03/24/24 14:07 Alkaline Phosphatase 58 U/L (35-105) 03/24/24 14:07 C-Reactive Protein 3.0 mg/L (0.0-4.9) 03/24/24 14:07 Total Protein 7.2 g/dL (6.6-8.7) 03/24/24 14:07 Albumin 4.3 g/dL (3.5-5.2) 03/24/24 14:07 Globulin 2.9 g/dL (1.3-4.6) 03/24/24 14:07 HCG, Qual Negative (Negative) 03/24/24 14:07 Urine Color Dark yellow (Yellow) A 03/24/24 14:07 Urine Appearance Slightly cloudy (CLEAR) 03/24/24 14:07 Urine pH 9 (5-7) H 03/24/24 14:07 Ur Specific [place] 1.015 (1.005-1.030) 03/24/24 14:07 Urine Protein Neg (Negative) 03/24/24 14:07 Urine Glucose (UA) Norm (Normal) 03/24/24 14:07 Urine Ketones Negative (Negative) 03/24/24 14:07 Urine Blood Neg (Negative) 03/24/24 14:07 Urine Nitrate Negative (Negative) 03/24/24 14:07 Urine Bilirubin Neg (Negative) 03/24/24 14:07 Urine Urobilinogen Norm mg/dL (Negative) 03/24/24 14:07 Ur Leukocyte Esterase Negative (Negative) 03/24/24 14:07 Urine RBC None /hpf (0-2) 03/24/24 14:07 Urine WBC 0-4 /hpf (0-5) H 03/24/24 14:07 Ur Squamous Epith Cells None /hpf (0-5) 03/24/24 14:07 Amorphous Sediment 2+ /hpf 03/24/24 14:07 Urine Bacteria Trace /hpf (NONE) 03/24/24 14:07 H. pylori IgG Antibody Negative (Negative) 03/24/24 14:07 All radiology interpretation(s) finalized by discharge Discharge Plan Discharge Patient Disposition: Home Clinical Impression: Abnormal finding on imaging of liver Gastritis Qualifiers: Gastritis type: unspecified gastritis Chronicity: acute Gastritis bleeding: presence of bleeding unspecified Qualified Code(s): K29.00 - Acute gastritis without bleeding Condition: Stable Prescriptions: New pantoprazole 20 mg tablet,delayed release (DR/EC) 20 mg PO DAILY 28 Days Qty: 30 0RF No Action Tylenol Ex Str Rapid Release 500 mg Tablet 1,000 mg PO Q6H PRN (Reason: Pain) Discharge Orders: Discharge ED (Routine); Ordered 03/24/24 Ordered By: Maykel Cruz Referrals: Manny Delgadillo MD [Primary Care Provider] - Discharge Diet: Usual diet Discharge Activity: Increase activity as tolerated Patient Instructions: Gastritis (ED) Activity Restrictions/Additional Instructions: Take medications as directed. Drink plenty of water and fluids. Follow-up with primary care in 2 weeks for recheck. Make sure to follow-up with your primary care for further evaluation of abnormality seen on CT scan. Return to ED for worsening symptoms or new concerns. Coding Level of Care Code ED Medical Office Manager for Nakita Zavala
[2024-03-24 15:34] VITALS: BP 107/59; RESP 14
[2024-03-24 15:37] LABS: Add Urine Microscopic? YES; Bilirubin Urine Neg (Negative); Blood Urine Neg (Negative); Glucose Urine UA Norm (Normal); Ketones Urine Negative (Negative); Leukocyte Esterase Urine Negative (Negative); Nitrate Urine Negative (Negative); Protein Urine Neg (Negative); Specific Gravity, Urine 1.015 (1.005-1.030); Urine Appearance Slightly Cloudy (CLEAR); Urine Color Dark Yellow (Yellow); Urobilinogen Urine Norm (Negative); pH Urine 9 (5-7)
[2024-03-24 15:38] LABS: Add Urine Culture? No; Amorphous Sediment Urine 2+ /hpf; Bacteria Urine TRACE /hpf; WBC Urine 0-4 /hpf (0-5)
[2024-03-24 15:56] LABS: H. Pylori IgG Antibody Negative (Negative)
[2024-03-24] MEDS: iohexol 350 mg/mL 500 mL Btl (per mL) IV (16:04)
[2024-03-24] MEDS: pantoprazole 40 mg SDV IVP (18:26)
[2024-03-24 18:31] VITALS: BP 102/68; PULSE 72; O2SAT 99
== END 2024-03-24 18:41 | disposition home or self-care (01) ==
PROVIDERS: Emergency Provider Nurse Practitioner Family; PCP Family Medicine
DX: K29.00 Acute gastritis without bleeding (principal); R93.2 Abnormal findings on diagnostic imaging of liver and biliary tract
CPT/HCPCS: 36415; 74177; 80053; 81001; 84703; 85025; 86140; 86677; 96374; 99285; C9113; Q9967

== ENCOUNTER → 2024-05-17 09:33 | Outpatient (BNVA) | payer OTHER, MEDICAID, SELFPAY | PROVIDERS: PCP Family Medicine; Visit Provider Nurse Practitioner | DX: Z20.2 Contact with and (suspected) exposure to infections with a predominantly sexual mode of transmission (principal) | CPT/HCPCS: 87491; 87591 ==

== ENCOUNTER 2024-06-01 10:13 | Outpatient (CLI) | payer OTHER, MEDICAID, SELFPAY ==
--- NOTE | 2024-06-01 14:30 | MR_ITS ---
WS: [id number] MRI ABDOMEN WITHOUT GADOLINIUM ENHANCEMENT TECHNIQUE: Coronal T2 Fase BH, Axial T2 Fase BH, Axial T2 FS BH, Zxial 3D Reis BH, Axial DWI BH, 2D MRCP Radial BH, 3D MRCP (Resp), and Axial 3D Dyn BH Post sequences. CLINICAL INFORMATION: abnormal ct scan COMPARISON: CT 03/24/2024 and MRI 2019 FINDINGS: Mild hepatomegaly and splenomegaly. Previously described abnormality in the RIGHT hepatic lobe appear s to have resolved on this study. This may have been due to hepatic congestion. Recommend correlation with liver function studies. Otherwise no signal abnormalities in the liver today. Tiny esophageal hiatal hernia. Adrenal glands are normal. Gallbladder appears normal. Normal pancreas . Normal common bile duct. Normal renal parenchymal enhancement. No hydronephrosis. No other suspicio us findings. MR/MR abdomen wo/w con* [id number] Impression: 1. Previously described abnormality in the RIGHT hepatic lobe appears to have resolved on this study. No suspicious abnormalities in the liver. This may have been due to hepatic congestion due to IV fluids or contrast timing. Recommend correlation with liver function tests. 2. No abnormal gadolinium enhancement. 3. Hepatomegaly with liver measuring 19 cm [id number] increased compared to the 2020 MRI where it measured 17.3 cm. 4. Mild splenomegaly measuring 13.0 cm [id number]. 5. No other suspicious findings.
== END 2024-06-01 10:14 | disposition home or self-care (01) ==
LOC: RAD 10:13
DX: R93.89 Abnormal findings on diagnostic imaging of other specified body structures (principal); R16.0 Hepatomegaly, not elsewhere classified
CPT/HCPCS: 74183; A9577

== ENCOUNTER 2024-10-30 19:40 | Emergency (ER) | payer MEDICAID, SELFPAY ==
--- NOTE | 2024-10-30 19:43 | ECG_ITS ---
[facility]: [facility]24[facility]30 Pat Name: Kesha Casanova Department: Room: Gender: Female Cdl Instructor: : 2000 Requested By: Jacques Dhillon Order Number: [id number] Maurer MD: Deejay Diaz M.D. Measurements Intervals [place] Rate: 69 P: 56 CO: 129 QRS: 71 QRSD: 91 T: 46 QT: 353 QTc: 379 Interpretive Statements SINUS RHYTHM No previous ECG available for comparison Electronically Signed On 11-01-2024 22:02:05 [employer] by Deejay Diaz M.D. [email or web address]
[2024-10-30 19:56] VITALS: BP 114/74; PULSE 70; TEMP 36.6; O2SAT 100; BMI 21.2
[2024-10-30 20:32] LABS: Basophils % 0.6 %; Eosinophils # 0.2 10^3/uL (0.0-0.8); Eosinophils % 4.1 %; Hematocrit 39.1 % (36-47); Lymphocytes # 2.1 10^3/uL (0.8-4.8); Lymphocytes % 42.2 %; Mean Corpuscular HGB Conc 32.7 g/dL (30-55); Mean Corpuscular Volume 85.6 fl (85-98); Mean Platelet Volume 9.4 fL (7.4-10.4); Monocytes # 0.5 10^3/uL (0.2-0.9); Monocytes % 9.5 %; Neutrophils % 43.2 %; Nucleated Red Blood Cells % 0 %; Platelet Count 278 10^3/cmm (157-399); Red Blood Count 4.57 10^6/uL (3.85-5.65); Red Cell Distribution Width 12.9 % (12.1-15.1); White Blood Count 4.86 10^3/uL (3.29-11.43)
[2024-10-30 20:39] VITALS: BP 107/74; PULSE 67; RESP 16; O2SAT 99
--- NOTE | 2024-10-30 20:41 | CTR_ITS ---
PROCEDURE INFORMATION: Exam: CT Head Without Contrast Exam date and time: 10/30/2024 8:47 PM Age: 24 years old Clinical indication: Syncope and collapse; Additional info: Syncope, headache TECHNIQUE: Imaging protocol: Computed tomography of the head without contrast. Radiation optimization: All CT scans at this facility use at least one of these dose optimization techniques: automated exposure control; mA and/or kV adjustment per patient size (includes targeted exams where dose is matched to clinical indication); or iterative reconstruction. COMPARISON: No relevant prior studies available. RADIATION DOSE METRICS: Total DLP (mGy-cm): 1085.58 FINDINGS: Brain: Normal. No hemorrhage. Unremarkable white matter. No mass effect. Cerebral ventricles: No ventriculomegaly. Paranasal sinuses: Visualized sinuses are unremarkable. No fluid levels. Mastoid air cells: Visualized mastoid air cells are well aerated. Bones: Unremarkable. No acute fracture. Soft tissues: Unremarkable. CT/CT head wo con* [id number] IMPRESSION: No large territorial infarct or intracranial bleed.
--- NOTE | 2024-10-30 20:43 | ED_ITS ---
HPI - Dizziness 2 General: Chief Complaint: Dizziness Stated Complaint: dizzy, passout(45sec) Time Seen by Provider: 10/30/24 20:12 Source: patient Mode of arrival: ambulatory Limitations: no limitations History of Present Illness: HPI Narrative: Patient is a 24-year-old female who presents the emergency department complaining of syncope onset today. Patient states she was seated in the car, when she blacked out for a couple of seconds. This was witnessed by friend in the room, who states to me that the patient did not come to until about 45 seconds after. Patient states that she has had this before due to heavy menstruation, is currently on her menstrual cycle at this time. She also notes that she recently skipped her weekly dose of norelgestromin. She denies any injuries with a syncopal episode, this did occur while she was seated. 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 She is reporting a minor headache at this time. Denies any abdominal pain, nausea/vomiting, or other symptoms. She does note that she was prescribed meclizine for these spells, but states that this makes her symptoms worse. She notes that she has had heavy bleeding, has been told she is anemic before. No focal neurological deficits reported at this time, no visual changes, no seizures, no other symptoms. MD elicited complaint: other (syncope) Pertinent past history: syncope and anemia Timing: sudden onset Severity: moderate History of similar symptoms: Yes Exacerbating factors: other (menstruation ) Associated symptoms: Reports headache(s) and syncope; Denies chest pain, chills, nausea, palpitations or vomiting Associated neuro symptoms: Deny numbness in extremities Related Data Previous Rx's ?Medication ?Instructions ?Recorded norelgestromin 150 mcg-e.estradiol 1 patch transdermal Q7D #3 ea 05/22/24 35 mcg/24 hr weekly transderm patch (Zafemy) pantoprazole 20 mg tablet,delayed 20 mg PO DAILY #30 t abs 05/22/24 release Allergies Allergy/AdvReac Type Severity Reaction Status Date / Time No Known Allergies Allergy Verified 10/30/24 20:00 Review of Systems 2 General: Reports: 10 or more systems reviewed and unremarkable except in HPI and below Const: Denies: fever(s), chills or fatigue Eyes: Denies: change in vision ENMT: Denies: throat pain, ear or mastoid pain or nasal discharge Card: Reports: syncope; Denies: chest pain, palpitations, swelling of feet/ankles or lightheadedness Resp: Denies: dyspnea, productive cough or wheezing GI: Denies: abdominal pain, nausea, vomiting, diarrhea or constipation : Reports: change in menstrual flow (heavy); Denies: flank pain, difficulty voiding, dysuria or urinary frequency Musc: Denies: neck pain, back pain or joint pain Skin/Breast: Denies: rash Neuro: Reports: headache(s) and dizziness; Denies: numbness in extremities, weakness in extremities, difficulty walking, seizure-like activity or involuntary movements PFSH ED 2 PFSH: Medical History GERD (gastroesophageal reflux disease) Encounter to establish care Abnormal CT scan ADHD (attention deficit hyperactivity disorder), combined type No pertinent past medical history neghx: htn,dm,thyroid,dvt/pe PCP: Dr. Delgadillo Major depressive disorder, recurrent, moderate Generalized anxiety disorder Surgical History H/O shoulder surgery Family History Denies family history of Colon cancer Ovarian cancer Diabetes Heart disease Hypercholesteremia Breast cancer Hypertension Uterine cancer Thyroid disease Stroke Social History Smoking and tobacco/nicotine status: current every day tobacco/nicotine user cigarettes Packs smoked per day: 0.5 Alcohol intake: current Alcohol intake frequency: holidays/special occasions only Substance/Drug Use: never Adopted: No service: No Current occupational exposures/hazards: No Physical Exam 2 Const: COMMON NORMALS: no acute distress, patient oriented x3 and no limitations GENERAL APPEARANCE: cooperative, comfortable and well developed ORIENTATION/CONSCIOUSNESS: Yes awake, Yes oriented to person, Yes oriented to place and Yes oriented to time HENMT: COMMON NORMALS: normocephalic, atraumatic and hearing grossly normal bilaterally HEAD & SCALP: normocephalic and atraumatic Eye: COMMON NORMALS: Equal, round and reactive pupils present, EOMs intact bilaterally and conjunctivae normal CONJUNCTIVA: Yes conjunctivae normal P UPIL: Yes Equal, round and reactive pupils present OTHER: eyes track midline Neck/C-Spine: COMMON NORMALS: full ROM, supple and no JVD Resp: COMMON NORMALS: normal respiratory effort, No retractions, No use of accessory muscles and clear to auscultation bilaterally AUSCULTATION: clear to auscultation bilaterally Cardio: COMMON NORMALS: no JVD, regular rate, regular rhythm, No clicks present (Cardio), No murmurs present (Cardio) and No rub (Cardio) RATE: r egular rate RHYTHM: regular rhythm GI: COMMON NORMALS: Normal to inspection, nondistended, normoactive bowel sounds present, Soft to palpation and non-tender AUSCULTATION: Yes normoactive bowel sounds PALPATION: Yes Soft to palpation RECTAL EXAM: d eferred Extremity: COMMON NORMALS: normal to inspection, full ROM and capillary refill normal Neuro: COMMON NORMALS: patient oriented x3, CN's II-XII intact bilaterally, moves all extremities, no focal motor deficits and no sensory deficits noted SENSORIUM/ORIENTATION: Yes oriented to person, Yes oriented to place and Yes oriented to time Psych: COMMON NORMALS: mental status grossly normal and Normal thought process present THOUGHT PROCESS: Normal thought process present Skin: COMMON NORMALS: no rashes or lesions noted GENERAL SKIN EXAM: no rashes or lesions noted Course 2 Vital Signs: Vital signs: Vital Signs Temperature 97.9 F 10/30/24 19:56 Pulse Rate 64 10/30/24 21:33 Respiratory Rate 16 10/30/24 21:33 Blood Pressure 105/73 10/30/24 21:33 Pulse Oximetry 99 10/30/24 21:33 Oxygen Delivery Me thod Room Air 10/30/24 19:56 MDM - Dizziness Medical Decision Making Reported episode of syncope earlier, no injuries as she was seated in the car. Neurologically intact on exam, her entire physical exam was unremarkable for any acute findings. She did note to me history of abnormal CT in the past with her brain, this was repeated and did not show any acute findings intracranially. Her lab work was all normal including normal blood count not indicating any signs of anemia. Metabolic panel was normal, urinalysis unremarkable. Her orthostatic vital signs were nondiagnostic. EKG showed normal sinus rhythm no acute findings here. Do not have any emergent explanation for her syncope, will have her follow-up closely with primary care and return with any further episodes. She is comfortable with this plan and verbalized understanding Lab Data 10/30/24 20:20 10/30/24 20:[address] 10/30/24 20:41 IMPRESSION: No large territorial infarct or intracranial bleed. Laboratory Results WBC 4.86 10^3/uL (3.29-11.43) 10/30/24 20:20 RBC 4.57 10^6/uL (3.85-5.65) 10/30/24 20:20 Hgb 12.80 g/dL (11.27-16.99) 10/30/24 20:20 Hct 39.1 % (36-47) 10/30/24 20:20 MCV 85.6 fl (85-98) 10/30/24 20:20 MCH 28.0 pg (27-33) 10/30/24 20:20 MCHC 32.7 g/dL (30-55) 10/30/24 20:20 RDW 12.9 % (12.1-15.1) 10/30/24 20:20 Plt Count 278 10^3/cmm (157-399) 10/30/24 20:20 MPV 9.4 fL (7.4-10.4) 10/30/24 20:20 Neut % (Auto) 43.2 % 10/30/24 20:20 Lymph % (Auto) 42.2 % 10/30/24 20:20 [place] % (Auto) 9.5 % 10/30/24 20:20 Eos % (Auto) 4.1 % 10/30/24 20:20 Baso % (Auto) 0.6 % 10/30/24 20:20 Neut # (Auto) 2.10 10^3/uL (1.8-7.7) 10/30/24 20:20 Lymph # (Auto) 2.1 10^3/uL (0.8-4.8) 10/30/24 20:20 [place] # (Auto) 0.5 10^3/uL (0.2-0.9) 10/30/24 20:20 Eos # (Auto) 0.2 10^3/uL (0.0-0.8) 10/30/24 20:20 Baso # (Auto) 0.0 10^3/uL (0.0-0.1) 10/30/24 20:20 Nucleated RBC % (auto) 0 % 10/30/24 20:20 Nucleated RBCs # 0.0 /100WBC 10/30/24 20:20 Sodium 139 mmol/L (136-145) 10/30/24 20:20 Potassium 3.8 mmol/L (3.5-5.1) 10/30/24 20:20 Chloride 105 mmol/L (98-107) 10/30/24 20:20 Carbon Dioxide 27 mmol/L (22-29) 10/30/24 20:20 Anion Gap 10.8 (5-19) 10/30/24 20:20 BUN 11 mg/dL (6-20) 10/30/24 20:20 Creatinine 0.7 mg/dL (0.5-0.9) 10/30/24 20:20 GFR Calculation 102.0 mL/min (90-130) 10/30/24 20:20 Glucose 95 mg/dL (65-115) 10/30/24 20:20 Calculated Osmolality 287 mOsm/kg (285-295) 10/30/24 20:20 Calcium 9.1 mg/dL (8.5-10.5) 10/30/24 20:20 Total Bilirubin 0.2 mg/dL (0.15-1.2) 10/30/24 20:20 AST 12 U/L (0-32) 10/30/24 20:20 ALT 10 U/L (0-33) 10/30/24 20:20 Alkaline Phosphatase 69 U/L (35-105) 10/30/24 20:20 Total Protein 6.9 g/dL (6.6-8.7) 10/30/24 20:20 Albumin 4.0 g/dL (3.5-5.2) 10/30/24 20:20 Globulin 2.9 g/dL (1.3-4.6) 10/30/24 20:20 HCG, Qual Negative (Negative) 10/30/24 20:20 Urine Color Yellow (Yellow) 10/30/24 21:26 Urine Appearance Turbid (CLEAR) A 10/30/24 21: Urine pH 8.5 (5-7) A 10/30/24 21: Ur Specific [place] 1.025 (1.005-1.030) 10/30/24 21: Urine Protein 1+ (Negative) A 10/30/24 21: Urine Glucose (UA) Negative (Normal) 10/30/24 21: Urine Ketones Negative (Negative) 10/30/24 21: Urine Blood 3+ (Negative) A 10/30/24 21: Urine Nitrate Negative (Negative) 10/30/24 21: Urine Bilirubin Negative (Negative) 10/30/24 21: Urine Urobilinogen 1.0 mg/dL (Negative) 10/30/24 21: Ur Leukocyte Esterase Negative (Negative) 10/30/24 21: Urine RBC 0-2 /hpf (0-2) 10/30/24 21: Urine WBC 0-5 /hpf (0-5) 10/30/24 21: Ur Squamous Epith Cells 0-5 /hpf (0-5) 10/30/24 21: Amorphous Sediment Not Reportable 10/30/24 21: Urine Bacteria Trace /hpf (NONE) 10/30/24 21: Hyaline Casts 0-4 /lpf H 10/30/24 21:26 All radiology interpretation(s) finalized by discharge Discharge Plan Discharge Patient Disposition: Home Clinical Impression: Syncope Qualifiers: Syncope type: unspecified Qualified Code(s): R55 - Syncope and collapse Condition: Stable Prescriptions: No Action pantoprazole 20 mg tablet,delayed release (DR/EC) 20 mg PO DAILY Qty: 30 2RF norelgestromin-ethin.estradiol [Zafemy] 150-35 mcg/24 hr patch weekly 1 patch transdermal Q7D Qty: 3 2RF Rx Instructions: apply once weekly for 3 weeks of a 4-week cycle Discharge Orders: Discharge ED (Routine); Ordered 10/30/24 Ordered By: Chang Kohler Referrals: Chana Jaimes NP [Primary Care Provider] - Patient Instructions: Syncope (ED) Activity Restrictions/Additional Instructions: Drink plenty of fluids. Please follow-up with your primary care provider as we discussed. Return immediately with any further episodes of syncope or other concerns that you have. Continue taking medications you are prescribed. Please see attached patient instructions for further education. Print Language: Ethiopian Coding Level of Care Code ED Lead Supply Worker for Nakita Zavala
[2024-10-30 20:45] VITALS: BP 101/73; BP 104/76; BP 95/68; PULSE 61; PULSE 71; PULSE 77
[2024-10-30 20:49] LABS: Alanine Aminotransferase 10 U/L (0-33); Alkaline Phosphatase 69 U/L (35-105); Anion Gap 10.8 (5-19); Aspartate Amino Transferase 12 U/L (0-32); Blood Urea Nitrogen 11 mg/dL (6-20); Calcium 9.1 mg/dL (8.5-10.5); Carbon Dioxide 27 mmol/L (22-29); Chloride 105 mmol/L (98-107); Globulin 2.9 g/dL (1.3-4.6); Glucose 95 mg/dL (65-115); Osmolality Calculated 287 mOsm/kg (285-295); Potassium 3.8 mmol/L (3.5-5.1); Sodium 139 mmol/L (136-145); Total Bilirubin 0.2 mg/dL (0.15-1.2); Total Protein 6.9 g/dL (6.6-8.7)
[2024-10-30 20:57] LABS: HCG, Serum Qual Negative (Negative)
[2024-10-30 21:01] VITALS: BP 96/65; PULSE 64; RESP 16; O2SAT 100
[2024-10-30 21:33] VITALS: BP 105/73; PULSE 64; RESP 16; O2SAT 99
[2024-10-30 21:39] LABS: Bilirubin Urine Negative (Negative); Blood Urine 3+ (Negative); Glucose Urine UA Negative (Normal); Ketones Urine Negative (Negative); Leukocyte Esterase Urine Negative (Negative); Nitrate Urine Negative (Negative); Protein Urine 1+ (Negative); Specific Gravity, Urine 1.025 (1.005-1.030); Urine Appearance Turbid (CLEAR); Urine Color Yellow (Yellow); pH Urine 8.5 (5-7)
[2024-10-30 21:44] LABS: Add Urine Microscopic? YES; Bacteria Urine Trace /hpf; Hyaline Casts Urine 0-4 /lpf; RBC Urine 0-2 /hpf (0-2); Squamous Epithelial Cell Urine 0-5 /hpf (0-5); WBC Urine 0-5 /hpf (0-5)
[2024-10-30 22:16] VITALS: BP 103/73; PULSE 72; RESP 16; O2SAT 100
== END 2024-10-30 22:17 | disposition home or self-care (01) ==
PROVIDERS: Emergency Medicine; Emergency Provider Physician Assistant
DX: R55 Syncope and collapse (principal); F17.210 Nicotine dependence, cigarettes, uncomplicated
CPT/HCPCS: 36415; 70450; 80053; 81001; 84703; 85025; 93005; 99284

== ENCOUNTER 2025-02-09 13:23 | Emergency (ER) | payer BC, MEDICAID, SELFPAY ==
--- NOTE | 2025-02-09 13:30 | ECG_ITS ---
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 Measurements Intervals [place] Rate: 67 P: 67 MS: 133 QRS: 83 QRSD: 86 T: 61 QT: 361 QTc: 384 Interpretive Statements SINUS RHYTHM Compared to ECG 10/30/2024 19:52:44 No significant changes Electronically Signed On 02-10-2025 12:35:56 CDT by Dorina Horan M.D. [email or web address] [id number]
[2025-02-09 13:31] VITALS: PULSE 67; RESP 18; TEMP 37.1; O2SAT 99; BMI 22.0
== END 2025-02-09 14:33 | disposition left against medical advice (07) ==
PROVIDERS: Emergency Provider Family Medicine
DX: Z01.89 Encounter for other specified special examinations (principal); Z53.21 Procedure and treatment not carried out due to patient leaving prior to being seen by health care provider
CPT/HCPCS: 93005

== ENCOUNTER 2025-02-10 14:59 | Emergency (ER) | payer BC, MEDICAID, SELFPAY ==
--- NOTE | 2025-02-10 15:05 | ECG_ITS ---
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 Measurements Intervals [place] Rate: 81 P: 75 TN: 123 QRS: 89 QRSD: 84 T: 56 QT: 342 QTc: 398 Interpretive Statements SINUS RHYTHM INTERPRETATION BASED ON A DEFAULT AGE OF 40 YEARS Compared to ECG 02/09/2025 13:30:44 No significant changes Electronically Signed On 02-10-2025 19:54:29 CDT by Dorina Horan M.D. [email or web address] [id number]
[2025-02-10 15:06] VITALS: BP 97/63; PULSE 77; RESP 15; TEMP 36.7; O2SAT 100; BMI 22.0
--- NOTE | 2025-02-10 15:12 | XRR_ITS ---
PROCEDURE INFORMATION: Exam: XR Chest Exam date and time: 02/10/2025 3:27 PM Age: 24 years old Clinical indication: Pain; Chest pressure; Additional info: Cp TECHNIQUE: Imaging protocol: Radiologic exam of the chest. Views: 1 view. COMPARISON: MR abdomen wo/w con* [id number] 06/01/2024 10:51 AM FINDINGS: Lungs: Unremarkable. No consolidation. Pleural spaces: Unremarkable. No pleural effusion. No pneumothorax. Heart/Mediastinum: Unremarkable. No cardiomegaly. Bones/joints: Unremarkable. XR/XR chest 1V portable [id number] IMPRESSION: No acute findings.
--- NOTE | 2025-02-10 16:05 | ED_ITS ---
HPI - Chest Pain 2 General: Chief Complaint: Chest Pain Stated Complaint: chest pain Time Seen by Provider: 02/10/25 15:59 Source: patient Mode of arrival: ambulatory Limitations: no limitations History of Present Illness: 24-year-old female who states that over the last few days she has been having some intermittent palpitations feeling like her heart skips a beat when she has that feeling she has some slight chest pain she denies any symptoms currently states that it is intermittent she denies any worse improving factors Associated symptoms: Reports dyspnea; Deny abdominal pain, fever(s), nausea or vomiting Related Data Previous Rx's ?Medication ?Instructions ?Recorded norelgestromin 150 mcg-e.estradiol 1 patch transdermal Q7D #3 ea 05/22/24 35 mcg/24 hr weekly transderm patch (Zafemy) pantoprazole 20 mg tablet,delayed 20 mg PO DAILY #30 t abs 05/22/24 release Allergies Allergy/AdvReac Type Severity Reaction Status Date / Time No Known Allergies Allergy Verified 10/30/24 20:00 Review of Systems 2 Const: Denies: fever(s), chills, body aches or change in appetite ENMT: Denies: throat pain or dental pain Card: Reports: chest pain Resp: Reports: dyspnea GI: Denies: abdominal pain, nausea, vomiting or diarrhea : Denies: dysuria Musc: Denies: neck pain or back pain Skin/Breast: Denies: rash Neuro: Denies: headache(s) PFSH ED 2 PFSH: Medical History GERD (gastroesophageal reflux disease) Encounter to establish care Abnormal CT scan ADHD (attention deficit hyperactivity disorder), combined type No pertinent past medical history neghx: htn,dm,thyroid,dvt/pe PCP: Dr. Delgadillo Major depressive disorder, recurrent, moderate Generalized anxiety disorder Surgical History H/O shoulder surgery Family History Denies family history of Colon cancer Ovarian cancer Diabetes Heart disease Hypercholesteremia Breast cancer Hypertension Uterine cancer Thyroid disease Stroke Social History Smoking and tobacco/nicotine status: current every day tobacco/nicotine user cigarettes Packs smoked per day: 0.5 Alcohol intake: current Alcohol intake frequency: holidays/special occasions only Substance/Drug Use: never Adopted: No service: No Current occupational exposures/hazards: No Physical Exam 2 Const: COMMON NORMALS: no acute distress, patient oriented x3 and healthy appearing HENMT: COMMON NORMALS: normocephalic and atraumatic HEAD & SCALP: n ormocephalic and atraumatic Neck/C-Spine: COMMON NORMALS: full ROM and supple Chest: COMMONS NORMALS: normal inspection of the chest Resp: COMMON NORMALS: normal respiratory effort, No retractions, No use of accessory muscles and clear to auscultation bilaterally AUSCULTATION: clear to auscultation bilaterally Cardio: COMMON NORMALS: regular rate, regular rhythm and No murmurs present (Cardio) RATE: regular rate RHYTHM: regular rhythm Extremity: COMMON NORMALS: normal to inspection and full ROM Neuro: COMMON NORMALS: patient oriented x3, moves all extremities and no focal motor deficits Psych: COMMON NORMALS: mental status grossly normal, Normal thought process present and cooperative THOUGHT PROCESS: Normal thought process present Skin: COMMON NORMALS: no rashes or lesions noted and no wounds GENERAL SKIN EXAM: no rashes or lesions noted Course 2 Vital Signs: Vital signs: Vital Signs Temperature 98.1 F 02/10/25 15:06 Pulse Rate 77 02/10/25 15:06 Respiratory Rate 15 02/10/25 15:06 Blood Pressure 97/63 02/10/25 15:06 Pulse Oximetry 100 02/10/25 15:06 Oxygen Delivery Me thod Room Air 02/10/25 15:06 MDM - Chest Pain Medical Decision Making Patient presents here with chest pains atypical in nature blood work EKGs x-ray are normal here heart rates been normal here as well she stable for discharge follow-up with PCP return if worsening. She has no signs of acs or pulmonary embolism Medical Records I reviewed the patient's medical records. Lab Data I reviewed the patient's lab results. 02/10/25 16:17 02/10/25 16:17 Radiology Impressions Chest X-Ray 02/10/25 15:12 IMPRESSION: No acute findings. Laboratory Results WBC 6.76 10^3/uL (3.29-11.43) 02/10/25 16:17 RBC 4.65 10^6/uL (3.85-5.65) 02/10/25 16:17 Hgb 12.80 g/dL (11.27-16.99) 02/10/25 16:17 Hct 39.8 % (36-47) 02/10/25 16:17 MCV 85.6 fl (85-98) 02/10/25 16:17 MCH 27.5 pg (27-33) 02/10/25 16:17 MCHC 32.2 g/dL (30-55) 02/10/25 16:17 RDW 11.9 % (12.1-15.1) L 02/10/25 16:17 Plt Count 238 10^3/cmm (157-399) 02/10/25 16:17 MPV 9.5 fL (7.4-10.4) 02/10/25 16:17 Neut % (Auto) 50.8 % 02/10/25 16:17 Lymph % (Auto) 35.5 % 02/10/25 16:17 [place] % (Auto) 10.1 % 02/10/25 16:17 Eos % (Auto) 2.4 % 02/10/25 16:17 Baso % (Auto) 0.9 % 02/10/25 16:17 Neut # (Auto) 3.44 10^3/uL (1.8-7.7) 02/10/25 16:17 Lymph # (Auto) 2.4 10^3/uL (0.8-4.8) 02/10/25 16:17 [place] # (Auto) 0.7 10^3/uL (0.2-0.9) 02/10/25 16:17 Eos # (Auto) 0.2 10^3/uL (0.0-0.8) 02/10/25 16:17 Baso # (Auto) 0.1 10^3/uL (0.0-0.1) 02/10/25 16:17 Nucleated RBC % (auto) 0 % 02/10/25 16:17 Nucleated RBCs # 0.0 /100WBC 02/10/25 16:17 Sodium 139 mmol/L (136-145) 02/10/25 16:17 Potassium 3.9 mmol/L (3.5-5.1) 02/10/25 16:17 Chloride 103 mmol/L (98-107) 02/10/25 16:17 Carbon Dioxide 26 mmol/L (22-29) 02/10/25 16:17 Anion Gap 13.9 (5-19) 02/10/25 16:17 BUN 11 mg/dL (6-20) 02/10/25 16:17 Creatinine 0.7 mg/dL (0.5-0.9) 02/10/25 16:17 GFR Calculation 102.0 mL/min (90-130) 02/10/25 16:17 Glucose 86 mg/dL (65-115) 02/10/25 16:17 Calculated Osmolality 287 mOsm/kg (285-295) 02/10/25 16:17 Calcium 9.3 mg/dL (8.5-10.5) 02/10/25 16:17 Total Bilirubin 0.4 mg/dL (0.15-1.2) 02/10/25 16:17 AST 16 U/L (0-32) 02/10/25 16:17 ALT 16 U/L (0-33) 02/10/25 16:17 Alkaline Phosphatase 58 U/L (35-105) 02/10/25 16:17 Total Protein 7.0 g/dL (6.6-8.7) 02/10/25 16:17 Albumin 4.1 g/dL (3.5-5.2) 02/10/25 16:17 Globulin 2.9 g/dL (1.3-4.6) 02/10/25 16:17 HCG, Qual Negative (Negative) 02/10/25 16:17 All radiology interpretation(s) finalized by discharge EKG Data EKG 2: I personally reviewed and interpreted this EKG as follows: EKG interpretation date: 02/10/25 EKG interpretation time: 17:04 Interpretation: nsr hr [address] or t wave abnormalities qrs 85 qtc 394 Discharge Plan Discharge Patient Disposition: Home Clinical Impression: Chest pain Condition: Stable Prescriptions: No Action pantoprazole 20 mg tablet,delayed release (DR/EC) 20 mg PO DAILY Qty: 30 2RF norelgestromin-ethin.estradiol [Zafemy] 150-35 mcg/24 hr patch weekly 1 patch transdermal Q7D Qty: 3 2RF Rx Instructions: apply once weekly for 3 weeks of a 4-week cycle Discharge Orders: Discharge ED (Routine); Ordered 02/10/25 Ordered By: Jacques Dhillon Referrals: Chana Jaimes NP [Primary Care Provider, Family Practice] - 4-7 days Discharge Diet: Advance as tolerated Discharge Activity: Resume usual activity Patient Instructions: Chest Pain (ED) Print Language: Korean Coding Level of Care Code ED Frankfurter Inspector for Nakita Zavala
[2025-02-10 16:24] LABS: Basophils # 0.1 10^3/uL (0.0-0.1); Basophils % 0.9 %; Eosinophils # 0.2 10^3/uL (0.0-0.8); Eosinophils % 2.4 %; Hematocrit 39.8 % (36-47); Lymphocytes # 2.4 10^3/uL (0.8-4.8); Lymphocytes % 35.5 %; Mean Corpuscular HGB Conc 32.2 g/dL (30-55); Mean Corpuscular Hemoglobin 27.5 pg (27-33); Mean Corpuscular Volume 85.6 fl (85-98); Mean Platelet Volume 9.5 fL (7.4-10.4); Monocytes # 0.7 10^3/uL (0.2-0.9); Monocytes % 10.1 %; Neutrophils # 3.44 10^3/uL (1.8-7.7); Neutrophils % 50.8 %; Nucleated Red Blood Cells % 0 %; Platelet Count 238 10^3/cmm (157-399); Red Blood Count 4.65 10^6/uL (3.85-5.65); Red Cell Distribution Width 11.9 % (12.1-15.1); White Blood Count 6.76 10^3/uL (3.29-11.43)
[2025-02-10 16:38] LABS: HCG, Serum Qual Negative (Negative)
[2025-02-10 16:41] LABS: Alanine Aminotransferase 16 U/L (0-33); Albumin Level 4.1 g/dL (3.5-5.2); Alkaline Phosphatase 58 U/L (35-105); Anion Gap 13.9 (5-19); Aspartate Amino Transferase 16 U/L (0-32); Blood Urea Nitrogen 11 mg/dL (6-20); Calcium 9.3 mg/dL (8.5-10.5); Carbon Dioxide 26 mmol/L (22-29); Chloride 103 mmol/L (98-107); Creatinine Clr Calc Pharmacy 125.3845; Globulin 2.9 g/dL (1.3-4.6); Glucose 86 mg/dL (65-115); Osmolality Calculated 287 mOsm/kg (285-295); Potassium 3.9 mmol/L (3.5-5.1); Sodium 139 mmol/L (136-145); Total Bilirubin 0.4 mg/dL (0.15-1.2)
[2025-02-10 17:36] VITALS: BP 97/66; PULSE 58; O2SAT 99
--- NOTE | 2025-02-10 17:46 | ECG_ITS ---
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 Measurements Intervals [place] Rate: 60 P: 60 FL: 136 QRS: 87 QRSD: 85 T: 74 QT: 394 QTc: 394 Interpretive Statements SINUS RHYTHM Compared to ECG 02/10/2025 15:05:13 No significant changes Electronically Signed On 02-10-2025 19:53:32 CDT by Dorina Horan M.D. [id number]
== END 2025-02-10 17:37 | disposition home or self-care (01) ==
PROVIDERS: Emergency Provider Emergency Medicine
DX: R07.9 Chest pain, unspecified (principal); K21.9 Gastro-esophageal reflux disease without esophagitis; F17.210 Nicotine dependence, cigarettes, uncomplicated
CPT/HCPCS: 71045; 80053; 84703; 85025; 93005; 99285

== ENCOUNTER → 2025-05-01 08:41 | Outpatient (BNVA) | payer BC, MEDICAID, SELFPAY | PROVIDERS: Visit Provider Obstetrics & Gynecology | DX: O03.9 Complete or unspecified spontaneous abortion without complication (principal) | CPT/HCPCS: 81025 ==

== ENCOUNTER → 2025-06-19 09:39 | Outpatient (BNVA) | payer BC, MEDICAID, SELFPAY | PROVIDERS: Visit Provider Nurse Practitioner Women's Health | DX: Z30.9 Encounter for contraceptive management, unspecified (principal) | CPT/HCPCS: 81025 ==

== ENCOUNTER 2025-06-23 15:04 | Emergency (ER) | payer BC, MEDICAID, SELFPAY ==
--- OUTSIDE RECORDS SUMMARY | 2025-06-21 16:40 | XMS_ITS | Encounter Summary ---
Author Organization [facility] Address [address] [place] [address] Care Team Providers Care Director Gift Name Role Phone Manny Delgadillo MD Primary Care Provider +1- [phone] Reason for Visit * Reason Comments Diarrhea Encounter Details Date Type Department Care Team (Late st Contact Info) Description 06/21/2025 4:40 PM CDT Office Visit [facility] Medicine [place] [address] [phone] Maylin Hoskins, [facility] [address] [phone] Acute diarrhea (Primary Dx) Social History Tobacco Use Types Packs/Day Years Used Date Smoking Tobacco: Every Day Cigarettes Smokeless Tobacco: Never Alcohol Use Standard Drinks/Week Comments No 0 (1 standard drink = 0.6 oz pur e alcohol) rarely Feeling Safe Answer Date Recorded Are you in a relationship wi th someone who hurts you emotionally and/or physically? 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 Gender Identity Female 04/18/2024 10:00 AM CDT Sexual Orientation Not on file documented as of this encounter Last Filed Vital Signs Vital Sign Reading Time Taken Comments Blood Pressure 98/73 06/21/2025 4:39 PM CDT Pulse 76 06/21/2025 4:39 PM CDT Temperature 36.9 C (98.5 F) 06/21/2025 4:39 PM CDT Respiratory Rate 14 06/21/2025 4:39 PM CDT Oxygen Saturation 100% 06/21/2025 4:39 PM CDT Inhaled Oxygen Concentration - - Weight 66.5 kg (146 lb 9.6 oz) 06/21/2025 4:39 P M CDT Height 172.7 cm (5' 8 ) 06/21/2025 4:39 PM CDT Body Mass Index 22.29 06/21/2025 4:39 PM CDT documented in this encounter Patient Instructions * Attachments The following attachments cannot be sent through Care Everywhere. * Diarrhea ([place]) documented in this encounter Progress Notes * Maylin Hoskins, DIRECTOR DIGITAL CATALOGUE - 06/21/2025 4:38 PM CDT Chief Complaint Patient presents with Diarrhea History of Present Illness The patient is a 24-year-old female who presents for diarrhea for 1.5 weeks. She has been experiencing watery diarrhea for the past 1.5 weeks, with bowel movements occurring between 5 to 10 times daily. This has led to difficulty in maintaining adequate food and fluid intake.She reports no recent travel or exposure to sick individuals. Her boyfriend and children have also been experiencing loose stools, but not to the same extent as hers. She has not taken any antibiotics recently. She had started taking iron supplements, vitamin C, vitamin D, and zinc around the time her symptoms began, but discontinued them two days ago without any improvement. She consumes fast food but ensures it is properly cooked. She does not experience muscle cramps. Yesterday, she experienc ed intestinal cramps that subsided after eating, followed by another episode of diarrhea. She occasionally feels a pinching sensation in her intestines. She feels hot and describes a burning sensation on her face, but has not had a fever. Despite drinking water, she feels dehydrated as the water seems to pass through her system within five minutes. Diet: Consumes fast food Review of Systems Constitutional: Positive for fever (feels feverish). HENT: Negative. Eyes: Negative. Respiratory: Negative. Cardiovascular: Negative. Gastrointestinal: Positive for abdominal pain and diarrhea. Genitourinary: Negative. Musculoskeletal: Negative. Skin: Negative. Neurological: Negative. Endo/Heme/Allergies: Negative. Psychiatric/Behavioral: Negative. BP 98/73 Pulse 76 Temp 98.5 ??F (36.9 ??C) Resp 14 Ht 5' 8 (1.727 m) Wt 66.5 kg (146 lb 9.6 oz) SpO2 100% BMI 22.29 kg/m?? Physical Exam General: No acute distress. Gastrointestinal: Abdominal cramps noted. Physical Exam Vitals and nursing note reviewed. Constitutional: Appearance: She is well-developed. HENT: Head: Normocephalic and atraumatic. Right Ear: External ear normal. Left Ear: External ear normal. Nose: Nose normal. Mouth/Throat: Mouth: Mucous membranes are moist. Eyes: Extraocular Movements: Extraocular movements intact. Conjunctiva/sclera: Conjunctivae normal. Cardiovascular: Rate and Rhythm: Normal rate. Pulmonary: Effort: Pulmonary effort is normal. Musculoskeletal: General: Normal range of motion. Cervical back: Normal range of motion. Skin: General: Skin is warm and dry. Neurological: Mental Status: She is alert and oriented to person, place, and time. Psychiatric: Mood and Affect: Mood normal. Behavior: Behavior normal. Thought Content: Thought content normal. Judgment: Judgment normal. Results ICD-10-CM ICD-9-CM 1. Acute diarrhea R19.7 787.91 STOOL CULTURE W/SHIGA TOXIN C. DIFFICILE DETECTION ciprofloxacin HCl (Cipro) 500 mg tablet Assessment & Plan 1. Diarrhea: - She has been experiencing watery diarrhea for 1.5 weeks, with 5-10 episodes per day. - There is no recent travel, antibiotic use, or undercooked food intake. She started taking iron, vitamin C, vitamin D, and zinc supplements around the onset of symptoms but stopped two days ago without improvement. She reports feeling dehydrated despite drinking water, as it passes through her quickly. There are no associated muscle cramps or fever, although she feels hot and has facial flushing. - A stool culture will be collected to rule out bacterial colitis. She was unable to provide a stool sample in the clinic and was sent home with supplies to collect it. - Ciprofloxacin will be prescribed, to be started only after the stool culture has been collected. Maylin SANTANA This note was automatically generated by a Generative AI technology (citibuddies), reviewed, edited, and finalized by SHRUTI Colin. The author of this note, patient (or authorized telemarketing representative), and all other persons present consent to the audio recording of this visit for charting documentation purposes. Depression Screen Positive: PHQ-2 score >= 3 or PHQ-9 score >= 9 PHQ-2 Total: 0 (06/21/2025 4:00 PM) DEPRESSION PLAN OF CARE Her depression screen was negative. (PHQ2 <3, PHQ9 <10, [place] <11) documented in this encounter Plan of Treatment Pending Results Name Type Priority Associated Diagnoses Date /Time STOOL CULTURE W/SHIGA TOXIN Microbiology Routine Acute diarrhea 06/23/2025 5:05 AM CDT C. DIFFICILE DETECTION Microbiology Routine Acute diarrhea 06/23/2025 4:50 AM CDT Scheduled Orders Name Type Priority Associated Diagnoses Orde r Schedule STOOL CULTURE W/SHIGA TOXIN Microbiology Routine Acute diarrhea Expected: 06/21/2025, Expires: 06/21/2026 C. DIFFICILE DETECTION Microbiology Routine Acute diarrhea Expected: 06/21/2025, Expires: 06/21/2026 documented as of this encounter Visit Diagnoses Diagnosis Acute diarrhea- Primary Diarrhea documented in this encounter Care Teams Director Gift Relationship Specialty Start Date End Date Manny Delgadillo MD [address] [place] [phone] PCP - General Family Practice 03/29/24 documented as of this encounter
--- OUTSIDE RECORDS SUMMARY | 2025-06-22 07:10 | XMS_ITS | Encounter Summary ---
Author Organization [facility] Address [address] [place] [address] Care Team Providers Care Multimedia Producer Name Role Phone Manny Delgadillo MD Primary Care Provider [phone]- [phone] Encounter Details Date Type Department Care Team (Latest Contact Info) Description 06/22/2025 7:10 AM CDT - 06/22/2025 11:59 PM CDT Hospital Encounter [facility] Out[facility] [place] [address] [phone] Maylin Hoskisn, [facility] [address] [facility] [address] [place] [phone] Diarrhea, unspecified Discharge Disposition: Home or Self Care Social History Tobacco Use Types Packs/Day Years [...] AM CDT 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 14 Tablet 06/28/20 25 amoxicillin (AMOXIL) 500 mg capsule Take 500 mg by mouth 3 times daily. pantoprazole (PROTONIX) 20 mg Tablet, Delayed Release (E.C.) Take 1 Tablet by mouth daily. 4 Ethinyl Estradiol-Norelges trom (Xulane) 150-35 mcg/24 hr Patch Weekly PATCHIndications:E ncounter for initial prescription of transdermal patch hormonal contraceptive device Apply 1 Patch to skin as directed see administration instructions. 4 Patch 11 4 traMADoL (ULTRAM) 50 mg tabletIndications: Hemorrhagic cystitis Take 1 Tablet (50 mg) by mouth every 6 hours as needed for Pain. 20 Tablet 4 documented as of this encounter Plan of Treatment Not on file documented as of this encounter Visit Diagnoses Not on filedocumented in this encounter Care Teams Multimedia Producer Relationship Specialty Start Date End Date Manny Delgadillo MD [address] [phone] PCP - General Family Practice 03/29/24 documented as of this encounter
[2025-06-23 15:08] VITALS: BP 105/72; PULSE 62; TEMP 36.9; O2SAT 99; BMI 22.0
--- OUTSIDE RECORDS SUMMARY | 2025-06-23 15:09 | XMS_ITS | Clinical Summary ---
Author Organization [facility] [place] [facility] Address [address] Thomasn: [place] [address] Care Team Providers Care Sandwich Hand Name Role Phone Manny Delgadillo MD Primary Care Provider +1- [phone] Allergies No known active allergies Medications traMADoL (ULTRAM) 50 mg tabletIndications :Hemorrhagic cystitis Take 1 Tablet (50 mg) by mouth every 6 hours as needed for Pain. 20 Tablet 03/29/20 24 Active Additional Information Patient not taking.Reported on 08/06/2024 Ethinyl Estradiol-Norelge adrian (Xulane) 150-35 mcg/24 hr Patch Weekly PATCHIndications: Encounter for initial prescription of transdermal patch hormonal contraceptive device Apply 1 Patch to skin as directed see administration instructions. 4 Patch 11 06/18/20 24 Active pantoprazole (PROTONIX) 20 mg Tablet, Delayed Release (E.C.) Take 1 Tablet by mouth daily. 05/22/20 24 Active amoxicillin (AMOXIL) 500 mg capsule Take 500 mg by mouth 3 times daily. Active ciprofloxacin HCl (Cipro) 500 mg tabletIndications :Acute diarrhea Take 1 Tablet (500 mg) by mouth 2 times daily for 7 days. 14 Tablet 06/21/20 25 025 Active Active Problems Problem Noted Date Diagnosed Date 36 weeks gestation of 02/06/2024 Abdominal pain 02/06/2024 ADHD (attention deficit hype ractivity disorder), combined type 02/06/2024 Chronic anemia 02/06/2024 Encounter for counseling reg arding initiation of other contraceptive measure 02/06/2024 Encounter for IUD removal 02/06/2024 Generalized anxiety disorder 02/06/2024 H/O shoulder surgery 02/06/2024 Major depressive disorder, recurrent, moderate 0 02/06/2024 Pharyngitis 02/06/2024 Positive urine test 02/06/2024 Spontaneous 02/06/2024 Spontaneous vaginal delivery 02/06/2024 Viral infection 02/06/2024 Environmental tobacco smoke exposure 07/10/2015 Encounters Date Type Department Care Team Description 06/22/2025 7:10 AM CDT - 06/22/2025 11:59 PM CDT Hospital Encounter [facility] Outpatient Laboratory Services [place] [address] [facility] [address] [place] [address] Maylin Hoskins, SHRUTI Diarrhea, unspecified Discharge Disposition: Home or Self Care 06/21/2025 4:40 PM CDT Office Visit [facility] [place] [address] [place] [phone] Maylin Hoskins, SHRUTI Acute diarrhea (Primary Dx) 06/18/2025 External Device Data STL ABSTRACTION Provider, Abstract 06/18/2025 External Device Data STL ABSTRACTION Provider, Abstract 06/18/2025 External Device Data STL ABSTRACTION Provider, Abstract 05/28/2025 External Device Data STL ABSTRACTION Provider, Abstract 05/28/2025 External Device Data STL ABSTRACTION Provider, Abstract 05/01/2025 External Device Data STL ABSTRACTION Provider, Abstract 04/30/2025 External Device Data STL ABSTRACTION Provider, Abstract 03/26/2025 External Device Data STL ABSTRACTION Provider, Abstract from Last 3 Months Immunizations Immunization Administration Dates Next Due Influenza Seasonal Unspecified Formulation IM Family History Medical History Relation Name Comments Healthy Father Glaucoma Mother Relation Name Status Comments Father Alive Mother Alive Social History Tobacco Use Types Packs/Day Years Used Date Smoking Tobacco: Every Day Cigarettes Smokeless Tobacco: Never Tobacco Cessation:Ready to Q uit: Not Asked; Counseling Given: Not Answered Alcohol Use Standard Drinks/Week Comments No 0 (1 standard drink = 0.6 oz pur e alcohol) rarely Feeling Safe Answer Date Recorded Are you in a relationship wi th someone who hurts you emotionally and/or physically? 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 Gender Identity Female 04/18/2024 10:00 AM CDT Sexual Orientation Not on file Last Filed Vital Signs Vital Sign Reading [...] Mass Index 22.29 06/21/2025 4:39 PM CDT Plan of Treatment Health Maintenance Due Date Last Done Comments HPV VACCINES (1 - 3-dose series) 2014 DTAP/TDAP/TD VACCINES (1 - Tdap) 2018 HEPATITIS B VACCINES (1 of 3 - 19+ 3-dose series) 06/27 HPV/Cotest (21-29) 2020 INFLUENZA VACCINE (#1) 2025 09/15/2022 CERVICAL CANCER SCREENING 06/18/2027 PAP SMEAR 06/18/2027 06/18/2024 Procedures Procedure Name Priority Date/Time Associated Diagnosis Comments CERV/VAG CYTO AGE BASED SCREEN PAP W CT/NG, TRICH Routine 06/18/2024 11:40 AM CDT Screening for cervical cancer from Last 3 Months or Most Recently Relevant to Health Maintenance Results * CERV/VAG CYTO AGE BASED SCREEN PAP W CT/NG, TRICH (06/18/2024 11:40 AM CDT) COMMENT (PAP): [facility] Comment: This order for age-based cervical cancer and STI screening follows ACOG guidelines(PB 168, 140, UHT996). See individual assays for performing site location. CLINICAL INFORMATION [facility] Comment:SCREENING LAST MENSTRUAL PERIOD [facility] Comment:NONE GIVEN PREV PAP: [facility] Comment:NONE GIVEN PREV BX: [facility] Comment:NONE GIVEN SOURCE [facility] Comment:Endocervix ADEQUACY: [facility] Comment: Satisfactory for evaluation. Endocervical/transformation zone component present. Age and/or menstrual status not provided Partially obscuring inflammation PAP INTERP [facility] Comment: Cytology Results: Negative for intraepithelial lesion or malignancy. COMMENT (PAP TEST) [facility] [place] Comment: This Pap test has been evaluated with computer assisted technology. DENTAL CERAMIST: [facility] [place] Comment: MANUEL, CT(ASCP) CT Screening location: [facility] [address] [facility] Comment: EXPLANATORY NOTE: The Pap is a screening test for cervical cancer. It is not a diagnostic test and is subject to false negative and false positive results. It is most reliable when a satisfactory sample, regularly obtained, is submitted with relevant clinical findings and history, and when the Pap result is evaluated along with historic and current clinical information. CHLAMYDIA TRACHOMATIS RNA, TMA, UROGENITAL NOT DETECTED NOT DETECTED [facility] NEISSERIA GONORRHOEAE RNA, TMA, UROGENITAL NOT DETECTED NOT DETECTED [facility] COMMENT INFECTIOUS DISEASE [facility] Comment: The analytical performance characteristics of this assay, when used to test SurePath(TM) specimens have been determined by [facility]. The modifications have not been cleared or approved by the FDA. This assay has been validated pursuant to the CLIA regulations and is used for clinical purposes. For additional information, please refer to https://education.[employer]urious.[employer]/faq/BKO325 (This link is being provided for information/ educational purposes only.) TRICHOMONAS VAGINALIS,QUALITAT ARVIND,PAP VIAL NOT DETECTED NOT DETECTED [facility] Comment: The analytical performance characteristics of this assay have been determined by [facility]. The modifications have not been cleared or approved by the FDA. This assay has been validated pursuant to the CLIA regulations and is used for clinical purposes. For additional information, please refer to http://[employer]/ faq/Trichomonastma (This link is being provided for information/ educational purposes only.) Test Performed at: [facility] [address] [phone] Keyanna Medrano MD SL Genital SWAB OF ENDOCERVIX / Unknown 06/18/2024 11:40 AM CDT 06/19/2024 6:36 AM CDT us Jaylene Krishna DO PATHOLOGY/CYTOLOGY ORDERABLE S Final Result [facility] [phone] [facility] [address] [phone] from Last 3 Months or Most Recently Relevant to Health Maintenance Additional Health Concerns Infection Onset Date Last Indicated R/O C. diff 06/23/2025 06/23/2025 Insurance [facility] MEDICAID Care Teams Sandwich Hand Relationship Specialty Start Date End Date Manny Delgadillo MD [address] [phone] PCP - General Family Practice 03/29/24
--- OUTSIDE RECORDS SUMMARY | 2025-06-23 15:09 | XMS_ITS | Encounter Summary ---
Author Organization [facility] Address 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
--- OUTSIDE RECORDS SUMMARY | 2025-06-23 15:09 | XMS_ITS | Encounter Summary ---
Author Organization [facility] Address 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
--- OUTSIDE RECORDS SUMMARY | 2025-06-23 15:09 | XMS_ITS | Encounter Summary ---
Author Organization [facility] Address 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
[2025-06-23 15:50] LABS: Hematocrit 38.5 % (36-47); Hemoglobin 12.60 g/dL (11.27-16.99); Mean Corpuscular HGB Conc 32.7 g/dL (30-55); Mean Corpuscular Hemoglobin 26.8 pg (27-33); Mean Corpuscular Volume 81.7 fl (85-98); Nucleated Red Blood Cells % 0 %; Platelet Count 244 10^3/cmm (157-399); Red Blood Count 4.71 10^6/uL (3.85-5.65); White Blood Count 8.44 10^3/uL (3.29-11.43)
[2025-06-23 16:04] LABS: HCG, Serum Qual Negative (Negative)
[2025-06-23 16:08] LABS: Alanine Aminotransferase 47 U/L (0-33); Albumin Level 4.2 g/dL (3.5-5.2); Alkaline Phosphatase 69 U/L (35-105); Anion Gap 15.6 (5-19); Aspartate Amino Transferase 44 U/L (0-32); Blood Urea Nitrogen 12 mg/dL (6-20); Calcium 9.5 mg/dL (8.5-10.5); Carbon Dioxide 26 mmol/L (22-29); Chloride 101 mmol/L (98-107); Creatinine Clr Calc Pharmacy 109.7115; Globulin 3.1 g/dL (1.3-4.6); Glucose 109 mg/dL (65-115); Lipase 36 U/L (13-60); Osmolality Calculated 288 mOsm/kg (285-295); Potassium 3.6 mmol/L (3.5-5.1); Sodium 139 mmol/L (136-145); Total Protein 7.3 g/dL (6.6-8.7)
--- NOTE | 2025-06-23 16:09 | ED_ITS ---
HPI - Abdominal Pain 2 General: Chief Complaint: Abdominal Pain Stated Complaint: abd pain, no passing [id number] n/v Time Seen by Provider: 06/23/25 16:06 Source: patient Mode of arrival: ambulatory Limitations: no limitations History of Present Illness: Patient is a 24-year-old female presents to ED today along with her mother for evaluation of abdominal pain, diarrhea, fatigue. Patient states she has had watery diarrhea over the past 10 days or so. She has not noticed any bloody diarrhea. She states on she went to her primary care provider who ordered stool samples and placed her on Ciprofloxacin. She states she has not heard results of her stool samples yet. She states she is having diffuse abdominal pain and now has a concern that she is not passing gas. She states she did not have any diarrhea all day yesterday but that it started back up today. She states she tried to eat today but vomited. She has not been running fevers. She does report several of her family members had very mild symptoms but they seem to get over it quickly. MD elicited complaint: abdominal pain Pertinent past history: none Onset (ago): day(s) Pain Consistency: constant Location: Diffuse Severity: severe Radiation: none Migration to: no migration Exacerbating factors: nothing Relieving factors: nothing Associated Symptoms: Reports diarrhea, nausea and vomiting; Denies chills, dysuria, fever(s), hematochezia, hematemesis and melena Related Data Home Medications ?Medication ?Instructions ?Recorded ?Confirmed ferrous sulfate 27 mg iron tablet 27 mg PO DAILY 06/1906/19/25 multivitamin (One Daily 1 tab PO DAILY 06/19/2505/28 Multivitamin tablet) Previous Rx's ?Medication ?Instructions ?Recorded norgestimate 0.25 mg-ethinyl 1 tab PO DAILY #84 tabs 0 06/19/25 estradiol 0.035 mg tablet (Sprintec (28)) metronidazole 500 mg tablet 500 mg PO BID 7 days #14 t abs 06/23/25 Allergies Allergy/AdvReac Type Severity Reaction Status Date / Time latex Allergy Mild ALGY-Rash Verified 06/23/25 15:14 Review of Systems 2 Const: Denies: fever(s), chills, body aches, fatigue or malaise Card: Denies: chest pain Resp: Denies: dyspnea GI: Reports: abdominal pain, nausea, vomiting and diarrhea; Denies: hematemesis, hematochezia or melena : Denies: flank pain, difficulty voiding, dysuria, urinary frequency, urinary urgency, urinary hesitancy or pelvic pain Musc: Denies: neck pain, back pain, extremity pain, extremity swelling, joint pain, joint swelling or joint redness Skin/Breast: Denies: rash Neuro: Denies: headache(s), numbness in extremities, weakness in extremities, sensory changes or dizziness PFSH ED 2 PFSH: Medical History GERD (gastroesophageal reflux disease) Encounter to establish care Abnormal CT scan ADHD (attention deficit hyperactivity disorder), combined type No pertinent past medical history neghx: htn,dm,thyroid,dvt/pe PCP: Dr. Delgadillo Major depressive disorder, recurrent, moderate Generalized anxiety disorder Surgical History H/O shoulder surgery Family History Denies family history of Colon cancer Ovarian cancer Diabetes Heart disease Hypercholesteremia Breast cancer Hypertension Uterine cancer Thyroid disease Stroke Social History Smoking and tobacco/nicotine status: current every day tobacco/nicotine user (Vape) cigarettes Packs smoked per day: 0.5 Alcohol intake: current Alcohol intake frequency: holidays/special occasions only Substance/Drug Use: never Adopted: No service: No Current occupational exposures/hazards: No Physical Exam 2 Const: COMMON NORMALS: average body habitus, patient oriented x3, no limitations, healthy appearing, alert and well nourished GENERAL APPEARANCE: cooperative and in distress (appears uncomfortable secondary to pain) O RIENTATION/CONSCIOUSNESS: Yes awake, Yes oriented to person, Yes oriented to place and Yes oriented to time Eye: COMMON NORMALS: no scleral icterus Resp: COMMON NORMALS: normal respiratory effort and clear to auscultation bilaterally AUSCULTATION: clear to auscultation bilaterally Cardio: COMMON NORMALS: regular rate and regular rhythm RATE: regular rate RHYTHM: regular rhythm GI: COMMON NORMALS: Normal to inspection, nondistended, normoactive bowel sounds present, Soft to palpation, No hepatosplenomegaly present and no masses INSPECTION: Yes normal to inspection AUSCULTATION: Yes Hypoactive bowel sounds present PALPATION: Yes Soft to palpation, Yes Tenderness to palpation present (GI) (diffusely), No Guarding due to palpation present (GI), No Rigid due to palpation and Yes No hepatosplenomegaly present : COMMON NORMALS: Yes no CVA tenderness BLADDER/KIDNEY EXAM: Yes no CVA tenderness Back/Pelvis: COMMON NORMALS: no CVA tenderness Extremity: GENERAL: Yes normal exam except as noted Neuro: COMMON NORMALS: patient oriented x3 SENSORIUM/ORIENTATION: Yes alert, Yes oriented to person, Yes oriented to place and Yes oriented to time Skin: COMMON NORMALS: no rashes or lesions noted GENERAL SKIN EXAM: no rashes or lesions noted Course 2 Vital Signs: Vital signs: Vital Signs Temperature 98.4 F 06/23/25 15:08 Pulse Rate 62 06/23/25 15:08 Respiratory Rate 16 06/23/25 17:11 Blood Pressure 105/72 06/23/25 15:08 Pulse Oximetry 97 06/23/25 17:11 Oxygen Delivery Me thod Room Air 06/23/25 15:08 MDM - Abdominal Pain Medical Decision Making Patient here for abdominal pain and diarrhea as well as an episode of vomiting today. No fevers. Her vital signs are stable. Blood work showing a normal white count. No electrolyte derangements. Scant elevations to her AST/ALT at 44/47. Her urine does not appear infected. UA did comment on the presence of trichomonas. Patient states she is not having any discharge, odor, or itching. Will go ahead and provide her a prescription for Flagyl. Running gonorrhea/chlamydia off of her urine as well however lab states this test will take over 2 hours so we will call with positive results. Recommend she reach out to PCP to follow-up on results of her stool cultures. On re-examination, patient tells me she feels much better and is resting comfortably. She was able to have a bowel movement here and passed gas. She has not had any vomiting while here. Medical Records I reviewed the patient's medical records. Lab Data I reviewed the patient's lab results. 06/23/25 15:37 06/23/25 15:37 Labs/Radiology: Radiology Impressions Abdomen/Pelvis CT 06/23/25 16:28 IMPRESSION: 1. Findings compatible with a nonspecific enteritis and diarrheal state. Laboratory Results WBC 8.44 10^3/uL (3.29-11.43) 06/23/25 15:37 RBC 4.71 10^6/uL (3.85-5.65) 06/23/25 15:37 Hgb 12.60 g/dL (11.27-16.99) 06/23/25 15:37 Hct 38.5 % (36-47) 06/23/25 15:37 MCV 81.7 fl (85-98) L 06/23/25 15:37 MCH 26.8 pg (27-33) L 06/23/25 15:37 MCHC 32.7 g/dL (30-55) 06/23/25 15:37 RDW 13.4 % (12.1-15.1) 06/23/25 15:37 Plt Count 244 10^3/cmm (157-399) 06/23/25 15:37 MPV 9.7 fL (7.4-10.4) 06/23/25 15:37 Neut % (Auto) 41.0 % 06/23/25 15:37 Lymph % (Auto) 32.0 % 06/23/25 15:37 Callahan % (Auto) 9.0 % 06/23/25 15:37 Eos % (Auto) 17.1 % 06/23/25 15:37 Baso % (Auto) 0.8 % 06/23/25 15:37 Neut # (Auto) 3.46 10^3/uL (1.8-7.7) 06/23/25 15:37 Lymph # (Auto) 2.7 10^3/uL (0.8-4.8) 06/23/25 15:37 Callahan # (Auto) 0.8 10^3/uL (0.2-0.9) 06/23/25 15:37 Eos # (Auto) 1.4 10^3/uL (0.0-0.8) H 06/23/25 15:37 Baso # (Auto) 0.1 10^3/uL (0.0-0.1) 06/23/25 15:37 Nucleated RBC % (auto) 0 % 06/23/25 15:37 Nucleated RBCs # 0.0 /100WBC 06/23/25 15:37 Sodium 139 mmol/L (136-145) 06/23/25 15:37 Potassium 3.6 mmol/L (3.5-5.1) 06/23/25 15:37 Chloride 101 mmol/L (98-107) 06/23/25 15:37 Carbon Dioxide 26 mmol/L (22-29) 06/23/25 15:37 Anion Gap 15.6 (5-19) 06/23/25 15:37 BUN 12 mg/dL (6-20) 06/23/25 15:37 Creatinine 0.8 mg/dL (0.5-0.9) 06/23/25 15:37 GFR Calculation 87.4 mL/min (90-130) L 06/23/25 15:37 Glucose 109 mg/dL (65-115) 06/23/25 15:37 Calculated Osmolality 288 mOsm/kg (285-295) 06/23/25 15:37 Calcium 9.5 mg/dL (8.5-10.5) 06/23/25 15:37 Total Bilirubin 0.6 mg/dL (0.15-1.2) 06/23/25 15:37 AST 44 U/L (0-32) H 06/23/25 15:37 ALT 47 U/L (0-33) H 06/23/25 15:37 Alkaline Phosphatase 69 U/L (35-105) 06/23/25 15:37 Total Protein 7.3 g/dL (6.6-8.7) 06/23/25 15:37 Albumin 4.2 g/dL (3.5-5.2) 06/23/25 15:37 Globulin 3.1 g/dL (1.3-4.6) 06/23/25 15:37 Lipase 36 U/L (13-60) 06/23/25 15:37 HCG, Qual Negative (Negative) 06/23/25 15:37 Urine Color Dark yellow (Yellow) A 06/23/25 16:05 Urine Appearance Cloudy (CLEAR) A 06/23/25 16:05 Urine pH 6.5 (5-7) 06/23/25 16:05 Ur Specific [place] 1.030 (1.005-1.030) 06/23/25 16:05 Urine Protein 1+ (Negative) A 06/23/25 16:05 Urine Glucose (UA) Negative (Normal) 06/23/25 16:05 Urine Ketones Trace (Negative) 06/23/25 16:05 Urine Blood Negative (Negative) 06/23/25 16:05 Urine Nitrate Negative (Negative) 06/23/25 16:05 Urine Bilirubin Negative (Negative) 06/23/25 16:05 Urine Urobilinogen 1.0 mg/dL (Negative) 06/23/25 16:05 Ur Leukocyte Esterase 1+ (Negative) A 06/23/25 16:05 Urine RBC 6-10 /hpf (0-2) 06/23/25 16:05 Urine WBC 6-10 /hpf (0-5) 06/23/25 16:05 Ur Squamous Epith Cells 0-5 /hpf (0-5) 06/23/25 16:05 Calcium Oxalate Crystal 25-40 /hpf H 06/23/25 16:05 Amorphous Sediment Not Reportable 06/23/25 16:05 Urine Bacteria Trace /hpf (NONE) 06/23/25 16:05 Hyaline Casts 1.65 /lpf 06/23/25 16:05 Urine Mucus Trace /hpf 06/23/25 16:05 Urine Trichomonas 1+ /hpf H 06/23/25 16:05 All radiology interpretation(s) finalized by discharge Discharge Plan Discharge Patient Disposition: Home Clinical Impression: Enteritis Condition: Stable Prescriptions: New metronidazole 500 mg tablet 500 mg PO BID 7 Days Qty: 14 0RF No Action multivitamin [One Daily Multivitamin] Tablet 1 tab PO DAILY ferrous sulfate 27 mg iron tablet 27 mg PO DAILY norgestimate-ethinyl estradiol [Sprintec (28)] 0.25-0.035 mg tablet 1 tab PO DAILY Qty: 84 0RF Discharge Orders: Discharge ED (Routine); Ordered 06/23/25 Ordered By: Edel Nye Referrals: Chana Jaimes NP [Primary Care Provider, Family Practice] Patient Instructions: Enteritis (ED), Patient Portal & [facility] Instructions Activity Restrictions/Additional Instructions: As we discussed, your blood work here was unremarkable. CT imaging showing enteritis which is nonspecific inflammation involving your small bowel consistent with your symptoms and the diarrhea. Please reach out to primary care early this week to see if they have results of your stool cultures to further guide treatment. We discussed bland liquid diet and slowly advancing as tolerated. Do not take antidiarrheal medication. May return to the emergency department for onset of severe abdominal pain, fevers, bloody stools, generally feeling worse or unwell, or any other concerns you may have. We discussed how lab commented on the presence of trichomonas when they were doing microscopy on your urine. Will provide you a prescription for Flagyl for treatment of this. Partner will also need to get treated. We are also testing you for gonorrhea/chlamydia from your urine as well-lab stated this test will take over 2 hours thus you will be called later if any of these results are positive. Print Language: Pakistani Coding Level of Care Code ED Switchboard Operator for Nakita Zavala
[2025-06-23 16:22] LABS: Glucose Urine UA Negative (Normal); Nitrate Urine Negative (Negative); Specific Gravity, Urine 1.030 (1.005-1.030)
[2025-06-23 16:27] LABS: Add Urine Microscopic? YES
--- NOTE | 2025-06-23 16:28 | CTR_ITS ---
PROCEDURE INFORMATION: Exam: CT Abdomen And Pelvis With Contrast Exam date and time: 06/23/2025 4:37 PM Age: 24 years old Clinical indication: Abdominal pain; Generalized; Additional info: Abdominal pain, vomiting, diarrhea TECHNIQUE: Imaging protocol: Computed tomography of the abdomen and pelvis with contrast. Radiation optimization: All CT scans at this facility use at least one of these dose optimization techniques: automated exposure control; mA and/or kV adjustment per patient size (includes targeted exams where dose is matched to clinical indication); or iterative reconstruction. Contrast material: OMNI 350; Contrast volume: 100 ml; Contrast route: INTRAVENOUS (IV); COMPARISON: CT Abdomen/Pelvis Renal [id number] 11/27/2017 6:36 PM RADIATION DOSE METRICS: Total DLP (mGy-cm): 444.91 FINDINGS: Lungs: Subsegmental bibasilar atelectasis. The visualized lung bases are otherwise grossly clear. Diaphragm: No evidence of diaphragmatic defect. Liver: No focal hepatic lesion. Gallbladder and biliary ducts: Unremarkable. No intra-hepatic or extra-hepatic biliary dilatation. Pancreas: Unremarkable. Spleen: Unremarkable. Adrenal glands: Unremarkable. Kidneys and ureters: No renal parenchymal abnormality. No hydronephrosis or ureteral stone. Stomach and bowel: Multiple loops of thickened small bowel with fluid throughout the colon and rectum compatible with nonspecific enteritis and diarrheal state. No convincing evidence of bowel obstruction. Appendix: The appendix is not visualized, however there are no findings to suggest appendicitis. Intraperitoneal space: No evidence of free air or fluid collection. Trace free fluid. Vasculature: No aneurysmal dilatation or dissection of the abdominal aorta. The celiac trunk, SMA and KELLY are grossly patent. No evidence of IVC thrombus. The portal vein, SMV and splenic veins are grossly patent. Lymph nodes: No adenopathy. Urinary bladder: Grossly unremarkable. Reproductive: Grossly unremarkable. Bones/joints: No evidence of acute fracture or aggressive osseous lesion. Soft tissues: No evidence of fluid collection or hematoma in the superficial soft tissues. CT/CT abdomen pelvis w con* [id number] IMPRESSION: 1. Findings compatible with a nonspecific enteritis and diarrheal state.
[2025-06-23] MEDS: iohexol 350 mg/mL 500 mL Btl (per mL) IV (16:41)
[2025-06-23 16:53] LABS: UA Slide Review UA Slide Review Perf
[2025-06-23 17:11] VITALS: RESP 16; O2SAT 97
[2025-06-23] MEDS: morphine 4 mg/mL SDV 1 mL IVP (17:11)
[2025-06-23] MEDS: ondansetron 2 mg/ML SDV 2 mL 4 MG IVP (17:11)
[2025-06-23 18:08] VITALS: BP 115/68; PULSE 83; O2SAT 97
[2025-06-23 18:43] LABS: Trichomonas vaginalis (PCR) Detected (Negative)
[2025-06-23 19:10] LABS: Neisseria Gonorrhea NOT DETECTED (Negative)
== END 2025-06-23 18:09 | disposition home or self-care (01) ==
PROVIDERS: Emergency Provider Physician Assistant
DX: K52.9 Noninfective gastroenteritis and colitis, unspecified (principal); F17.290 Nicotine dependence, other tobacco product, uncomplicated
CPT/HCPCS: 36415; 74177; 80053; 81001; 83690; 84703; 85025; 87491; 87591; 87661; 96374; 96375; 99285; J2270; J2405; J7030